=== PATIENT | female | born 1980 | race Caucasian/White ===

== ENCOUNTER 2016-06-22 15:17 | Emergency (ER) | payer BC ==
--- NOTE | 2016-06-22 15:39 | ER Document Report ---
ED Medical Screen (RME) - General Stated Complaint: VOMITING/DIARRHEA Notes: Patient is a 36-year-old female presents emergency Department with vomiting and diarrhea for the past 2 days. She does admit to hematemesis that started today. Admits to on and off hot flashes at home. Admits to abdominal pain over her umbilicus that radiates up to her chest. Appendectomy September 2012. I have greeted and performed a rapid initial assessment of this patient. A comprehensive ED assessment and evaluation of the patient, analysis of test results and completion of the medical decision making process will be conducted by additional ED providers. TRAVEL OUTSIDE OF THE [place] IN LAST 30 DAYS: No - Related Data Allergies/Adverse Reactions: codeine [Codeine] Allergy (Verified 04/20/16 13:02) Past Medical History Pulmonary Medical History: Denies: Hx Asthma, Hx Bronchitis, Hx Pneumonia Renal/ Medical History: Reports: Hx Ectopic - treated with methotrexate Psychiatric Medical History: Reports: Hx Anxiety, Hx Bipolar Disorder, Hx Depression Past Surgical History: Reports: Hx Appendectomy - Immunizations Hx Diphtheria, Pertussis, Tetanus Vaccination: Yes Physical Exam - Vital signs Vitals: Temp Pulse Resp BP Pulse Ox 98.4 F 79 16 120/82 96 06/22/16 15:29 06/22/16 15:29 06/22/16 15:29 06/22/16 15:29 06/22/16 15:29 Course - Vital Signs Vital signs: Temp Pulse Resp BP Pulse Ox 98.4 F 79 16 120/82 96 06/22/16 15:29 06/22/16 15:29 06/22/16 15:29 06/22/16 15:29 06/22/16 15:29
[2016-06-22] MEDS ORDERED: ONDANSETRON 4 MG TAB.RAPDIS PO ONE (15:40)
[2016-06-22 16:19] LABS: ABSOLUTE EOSINOPHILS # (AUTO) 0.6 10^3/uL (0.0-0.6); ABSOLUTE LYMPHOCYTES (AUTO) 2.3 10^3/uL (0.5-4.7); ABSOLUTE MONOCYTES (AUTO) 0.8 10^3/uL (0.1-1.4); ABSOLUTE NEUT (AUTO) 10.4 10^3/uL (1.7-8.2); BASOPHILS % (AUTO) 0.1 % (0-2); EOSINOPHILS % (AUTO) 4.3 % (0-6); HEMATOCRIT 41.2 % (36.0-47.0); HEMOGLOBIN 13.7 g/dL (12.0-15.5); HGB HCT DIFFERENCE -0.1; LYMPHOCYTES % (AUTO) 16.6 % (13-45); MEAN CORPUSCULAR HEMOGLOBIN 29.9 pg (27.0-33.4); MEAN CORPUSCULAR HGB CONC 33.2 g/dL (32.0-36.0); MEAN CORPUSCULAR VOLUME 90 fl (80-97); MONOCYTES % (AUTO) 5.5 % (3-13); RED BLOOD COUNT 4.57 10^6/uL (3.72-5.28); RED CELL DISTRIBUTION WIDTH 12.9 % (11.5-14.0); SEGMENTED NEUTROPHILS % (AUTO) 73.5 % (42-78); WHITE BLOOD COUNT 14.1 10^3/uL (4.0-10.5)
[2016-06-22 16:34] LABS: APPEARANCE,URINE CLOUDY; BILIRUBIN,URINE NEGATIVE (NEGATIVE); GLUCOSE, URINE NEGATIVE (NEGATIVE); KETONES,URINE NEGATIVE (NEGATIVE); LEUKOCYTE ESTERASE,URINE MODERATE (NEGATIVE); NITRITE,URINE NEGATIVE (NEGATIVE); PROTEIN,URINE 100 mg/dL (NEGATIVE); UROBILINOGEN,URINE NEGATIVE mg/dL (<2.0)
[2016-06-22 16:38] LABS: ALANINE AMINOTRANSFERASE 28 U/L (9-52); ALBUMIN 4.4 g/dL (3.5-5.0); ALKALINE PHOSPHATASE 87 U/L (38-126); ANION GAP 14 (5-19); ASPARTATE AMINO TRANSFERASE 15 U/L (14-36); BILIRUBIN,TOTAL 0.7 mg/dL (0.2-1.3); BLOOD UREA NITROGEN 10 mg/dL (7-20); CALCIUM 9.4 mg/dL (8.4-10.2); CARBON DIOXIDE 22 mmol/L (22-30); CHLORIDE 105 mmol/L (98-107); GLUCOSE 110 mg/dL (75-110); LIPASE 42.2 U/L (23-300); POTASSIUM 4.2 mmol/L (3.6-5.0); SODIUM 141.3 mmol/L (137-145); TOTAL PROTEIN 7.1 g/dL (6.3-8.2)
[2016-06-22] MEDS ORDERED: NORMAL SALINE 1000 ML 1,000 ML IV ONE (18:47)
[2016-06-22] MEDS ORDERED: MORPHINE SULFATE 10 MG/ML INJ IV ONE ×2 (18:47→20:58)
--- NOTE | 2016-06-22 18:48 | ER Document Report ---
ED GI/ - General Mode of Arrival: Ambulatory Information source: Patient TRAVEL OUTSIDE OF THE [place] IN LAST 30 DAYS: No - HPI Patient complains to provider of: Abdominal pain, Diarrhea, Vomiting Onset: Other - 2 days ago Location: Other - see above Associated symptoms: Other - see above <HIEN DE SANTIAGO - Last Filed: 06/22/16 20:32> <BERTHAJENNIFER ANN - Last Filed: 06/23/16 03:20> - General Chief Complaint: Abdominal Pain Stated Complaint: VOMITING/DIARRHEA Notes: 36 year old female with history of ADHD, depression, and anxiety presents to the ED complaining of right sided abdominal pain that started 2 days ago. Patient is additionally complaining of vomiting and diarrhea. Patient states that yesterday morning she woke up with a "sour stomach" and took a pepto bismol tablet when she arrived to work. Patient explains that she then proceeded to vomit and her symptoms have been worsening since then. Patient has a past abdominal surgical history of an appendectomy in September 2012. (HIEN DE SANTIAGO) - Related Data Allergies/Adverse Reactions: codeine [Codeine] Allergy (Verified 06/22/16 15:38) Past Medical History - General Information source: Patient - Social History Smoking Status: Current Every Day Smoker Chew tobacco use (# tins/day): No Drug Abuse: None Family History: Reviewed & Not Pertinent Patient has suicidal ideation: No Patient has homicidal ideation: No Renal/ Medical History: Reports: Hx Ectopic - treated with methotrexate Psychiatric Medical History: Reports: Hx Anxiety, Hx Bipolar Disorder, Hx Depression Past Surgical History: Reports: Hx Appendectomy - September 2012 - Immunizations Hx Diphtheria, Pertussis, Tetanus Vaccination: Yes <HIEN DE SANTIAGO - Last Filed: 06/22/16 20:32> Review of Systems - Review of Systems Constitutional: No symptoms reported EENT: No symptoms reported Cardiovascular: No symptoms reported Respiratory: No symptoms reported Gastrointestinal: See HPI, Abdominal pain - right side, Diarrhea, Vomiting Genitourinary: No symptoms reported Female Genitourinary: No symptoms reported Musculoskeletal: No symptoms reported Skin: No symptoms reported Hematologic/Lymphatic: No symptoms reported Neurological/Psychological: No symptoms reported -: Yes All other systems reviewed and negative <HIEN DE SANTIAGO - Last Filed: 06/22/16 20:32> Physical Exam - Vital signs Interpretation: Normal - General General appearance: Alert In distress: None - HEENT Head: Normocephalic, Atraumatic Eyes: Normal Extraocular movements intact: Yes Pupils: PERRL Mucous membranes: Dry - Respiratory Respiratory status: No respiratory distress Breath sounds: Normal - Cardiovascular Rhythm: Regular Heart sounds: Normal auscultation - Abdominal Inspection: Normal Tenderness: Tender - RUQ tenderness to palpation - Back Back: Normal - Extremities General upper extremity: Normal inspection, Normal ROM General lower extremity: Normal inspection, Normal ROM - Neurological Neuro grossly intact: Yes Cognition: Normal Orientation: AAOx4 [place] Coma Scale Eye Opening: Spontaneous Marlene Coma Scale Verbal: Oriented [place] Coma Scale Motor: Obeys Commands Marlene Coma Scale Total: 15 Speech: Normal - Psychological Associated symptoms: Normal affect, Normal mood - Skin Skin Temperature: Warm Skin Moisture: Dry Skin Color: Normal <HIEN DE SANTIAGO - Last Filed: 06/22/16 20:32> <JENNIFER STONE - Last Filed: 06/23/16 03:20> - Vital signs Vitals: Temp Pulse Resp BP Pulse Ox 98.4 F 79 16 120/82 96 06/22/16 15:29 06/22/16 15:29 06/22/16 15:29 06/22/16 15:29 06/22/16 15:29 (HIEN DE SANTIAGO) (JENNIFER STONE) Course - Laboratory Result Diagrams: 06/22/16 15:45 06/22/16 15:45 <HIEN DE SANTIAGO - Last Filed: 06/22/16 20:32> - Laboratory Result Diagrams: 06/22/16 15:45 06/22/16 15:45 - Diagnostic Test Radiology reviewed: Reports reviewed <JENNIFER STONE - Last Filed: 06/23/16 03:20> - Re-evaluation Re-evalutation: 06/22/16 21:04 Patient with continued right-sided pain. Now 18 is lower in her abdomen. Patient will be given pain medication and CT ordered. 06/23/16 Patient feels better after pain medication and fluids. No acute findings and CT. Blood work within normal limits. Patient is able to take by mouth. Stable for discharge home. Return if any worsening or concerning symptoms. ( JENNIFER STONE) - Vital Signs Vital signs: Temp Pulse Resp BP Pulse Ox 98.4 F 79 16 120/82 96 06/22/16 15:29 06/22/16 15:29 06/22/16 15:29 06/22/16 15:29 06/22/16 15:29 (HIEN DE SANTIAGO) (JENNIFER STONE) - Laboratory Laboratory results interpreted by me: 06/22/16 06/22/16 15:45 15:50 WBC 14.1 H Absolute Neutrophils 10.4 H Urine Protein 100 H Ur Leukocyte Esterase MODERATE H (HIEN DE SANTIAGO) (JENNIFER STONE) Discharge <HIEN DE SANTIAGO - Last Filed: 06/22/16 20:32> <JENNIFER STONE - Last Filed: 06/23/16 03:20> - Discharge Clinical Impression: Abdominal pain Qualifiers: Abdominal location: right upper quadrant Qualified Code(s): R10.11 - Right upper quadrant pain Vomiting Qualifiers: Vomiting type: unspecified Vomiting Intractability: non-intractable Nausea presence: with nausea Qualified Code(s): R11.2 - Nausea with vomiting, unspecified Diarrhea Qualifiers: Diarrhea type: unspecified type Qualified Code(s): R19.7 - Diarrhea, unspecified Condition: Stable Disposition: HOME, SELF-CARE Instructions: Abdominal Pain ([facility]), Vomiting ([facility]), Diarrhea, Nonspecific ([facility]) Prescriptions: Ondansetron [Zofran Odt 4 mg Tablet] 1 - 2 tab PO Q4H PRN #15 tab.rapdis PRN Reason: For Nausea/Vomiting Oxycodone HCl/Acetaminophen [Percocet 5-325 mg Tablet] 1 - 2 tab PO Q4H PRN #15 tablet PRN Reason: Forms: Return to Work Referrals: SUYAPA ALEXANDER MD [Primary Care Provider] - Follow up as needed Scribe Attestation: 06/23/16 03:19 I personally performed the services described in the documentation, reviewed and edited the documentation which was dictated to the scribe in my presence, and it accurately records my words and actions. (JENNIFER STONE) Scribe Documentation - Scribe Written by Scribe:: Fabrice Farias, 06/22/2016 19:14 acting as scribe for :: Bertha <HIEN DE SANTIAGO - Last Filed: 06/22/16 20:32>
[2016-06-22] MEDS ORDERED: HYDROCODONE/ACETAMINOPHEN 5-325 MG 6 TAB/DSPK PO PRN (22:04)
[2016-06-22] MEDS ORDERED: ONDANSETRON ODT 4 MG TAB (6 TAB/DSPK) PO PRN (22:04)
[2016-06-22 22:32] VITALS: BP 119/72
== END 2016-06-22 22:24 | disposition home or self-care (01) ==
LOC: ER 15:17
DX: R10.11 Right upper quadrant pain (principal); R11.2 Nausea with vomiting, unspecified; R19.7 Diarrhea, unspecified; F17.200 Nicotine dependence, unspecified, uncomplicated; Z90.49 Acquired absence of other specified parts of digestive tract; Z88.5 Allergy status to narcotic agent; Z87.59 Personal history of other complications of pregnancy, childbirth and the puerperium
CPT/HCPCS: 96376; 99284; 96361; 96374; 36415; 87086; 83690; 85025; 81025; 80053; 81001; 76705; 74177; S0119; J2270; J7030

== ENCOUNTER 2016-08-01 13:56 | Emergency (ER) | payer SELFPAY ==
[2016-08-01] MEDS ORDERED: IPRATROPIUM/ALBUTEROL 0.5-2.5 MG/3 ML AMPUL NEB ONE (16:33)
[2016-08-01] MEDS ORDERED: PREDNISONE 20 MG TABLET PO ONE (16:33)
--- NOTE | 2016-08-01 16:36 | ER Document Report ---
HPI - HPI Patient complains to provider of: upper respiratory symptoms Onset: Other - 4 days Onset/Duration: Gradual Quality of pain: Achy Pain Level: 4 Context: Patient complains of sore throat, cough and congestion for the past 4 days. Patient reports productive cough. Patient states she has had some nausea. Patient denies any vomiting or diarrhea. Patient reports fever of 102 yesterday. Reports multiple sick contacts at work with similar symptoms. Associated Symptoms: Body/muscle aches, Chills, Productive cough, Fever, Sore throat. denies: Headache Exacerbated by: Denies Relieved by: Denies Similar symptoms previously: Yes Recently seen / treated by doctor: No - ROS ROS below otherwise negative: Yes Systems Reviewed and Negative: Yes All other systems reviewed and negative - CONSTITUTIONAL Constitutional: REPORTS: Fever, Chills - EENT EENT: REPORTS: Sore Throat, Congestion - RESPIRATORY Respiratory: REPORTS: Coughing. DENIES: Trouble Breathing - GASTROINTESTINAL Gastrointestinal: REPORTS: Nausea. DENIES: Patient vomiting, Diarrhea, Black / Bloody Stools - REPRODUCTIVE Reproductive: DENIES: : - MUSCULOSKELETAL Musculoskeletal: DENIES: Extremity pain - DERM Skin Color: Normal Skin Problems: None Past Medical History - General Information source: Patient Last Menstrual Period: 07/14/2016 - Social History Smoking Status: Current Every Day Smoker - One pack per day Frequency of alcohol use: None Drug Abuse: None Occupation: [employer] Lives with: Family Family History: Reviewed & Not Pertinent Pulmonary Medical History: Denies: Hx Asthma, Hx Bronchitis, Hx Pneumonia Renal/ Medical History: Reports: Hx Ectopic - treated with methotrexate. Denies: Hx Peritoneal Dialysis Musculoskeltal Medical History: Reports Hx Arthritis - Sciatica Psychiatric Medical History: Reports: Hx Anxiety, Hx Bipolar Disorder, Hx Depression Past Surgical History: Reports: Hx Appendectomy - September 2012 - Immunizations Hx Diphtheria, Pertussis, Tetanus Vaccination: Yes Vertical Provider Document - CONSTITUTIONAL Agree With Documented VS: Yes Exam Limitations: No Limitations General Appearance: WD/WN, No Apparent Distress - INFECTION CONTROL TRAVEL OUTSIDE OF THE [place] IN LAST 30 DAYS: No - HEENT HEENT: Atraumatic, Normocephalic, Pharyngeal Tenderness. negative: Pharyngeal Exudate, Tympanic Membrane Red, Tympanic Membrane Bulging - NECK Neck: Normal Inspection, Supple. negative: Lymphadenopathy-Left, Lymphadenopathy-Right - RESPIRATORY Respiratory: No Respiratory Distress, Rhonchi, Wheezing O2 Sat by Pulse Oximetry: 98 - CARDIOVASCULAR Cardiovascular: Regular Rhythm, No Murmur, Tachycardia - BACK Back: Normal Inspection - MUSCULOSKELETAL/EXTREMETIES Musculoskeletal/Extremeties: FRANCOIS MCMANUS - NEURO Level of Consciousness: Awake, Alert, Appropriate Motor/Sensory: No Motor Deficit - DERM Integumentary: Warm, Dry, No Rash Course - Re-evaluation Re-evalutation: 08/01/16 17:52 Patient with decreased wheezing and increased air movement bilaterally. 08/01/16 19:20 Heart rate continues mildly tachycardic 114. Patient states that she feels much better after the breathing treatment. Patient does take Adderall and states that she has had an elevated heart rate in the past but on subsequent visits her heart rate has normalized. Patient denies any history of DVT or PE, recent travel, bedrest or immobilization. Patient does not take any control. Consulted with Dr. Mcclellan regarding patient presentation. Agrees with discharge plan of care, does not recommend any additional testing at this time. - Vital Signs Vital signs: Temp Pulse Resp BP Pulse Ox 98.1 F 111 H 18 141/82 H 98 08/01/16 14:27 08/01/16 14:27 08/01/16 14:27 08/01/16 14:27 08/01/16 14:27 - Diagnostic Test Radiology reviewed: Image reviewed, Reports reviewed Discharge - Discharge Clinical Impression: Bronchospasm Upper respiratory infection Qualifiers: URI type: unspecified URI Qualified Code(s): J06.9 - Acute upper respiratory infection, unspecified Condition: Stable Disposition: HOME, SELF-CARE Additional Instructions: Return immediately for any new or worsening symptoms Followup with your primary care provider, call tomorrow to make a followup appointment UPPER RESPIRATORY ILLNESS: You have a viral infection of the respiratory passages -- a "cold." This common infection causes nasal congestion, drainage, and often sore throat and cough. It is highly contagious. The disease usually lasts about 10 to 14 days. There is no "cure" for the viral infection -- it must run its course. If there is a complication, such as bacterial infection in the nose, sinuses, middle ear, or bronchial tubes, antibiotics may be required. The antibiotics won't affect the virus. Drink plenty of fluids. A humidifier may help. An expectorant medication or decongestant may make you more comfortable. Use acetaminophen or ibuprofen for fever or aches. See the doctor if fever persists over two days, if there is any significant worsening of your symptoms, or if you simply fail to improve as expected. BRONCHOSPASM: You have tightness in the bronchial tubes, called bronchospasm. This often occurs with bronchial infections. Allergies, inhaled chemicals, and polluted or cold air can also provoke bronchospasm. It's more likely in patients with asthma in the family. Emergency treatment of bronchospasm may include adrenaline shots or bronchodilator aerosol. You may feel lightheaded and have a rapid pulse for an hour or two. Rest and get plenty of fluids. At home, we'll treat you with a bronchodilator inhaler. Antibiotics and corticosteroids may be required for some patients. Until you recover, avoid chemical fumes, dusts, pollens, and exercising in very cold or dry air. If you smoke, stop now!! If you develop a fever, increased wheezing, chest pain, or severe shortness of breath, you should contact the doctor immediately. INHALED BRONCHODILATORS: You have received a treatment of and/or prescription for an inhaled bronchodilator -- a medication which stimulates the airways in the lung to dilate. This improves the flow of air in asthma, bronchitis, and emphysema. These medicines have some similarity to adrenaline, and can cause similar side effects: shakiness, racing heart, and a sense of nervousness. These side effects decrease with time. Contact your doctor if these side effects are severe. Do not over-use the medicine. Too-frequent use of the inhaler may make it ineffective. Call your doctor if the inhaler is not controlling your symptoms at the prescribed doses. STEROID MEDICATION: You have been given an injection of or oral medicine of the cortisone/ steroid class. This medication is used to control inflammation or allergy. Justus t is usually only given for a short period of time, until the acute process subsides. There are usually no side effects from short-term use of cortisone-like medications. Some persons feel an increased sense of well-being and are not sleepy at bedtime. Long-term use of cortisone medications is best avoided, unless required for a severe condition. If your condition does not remit, or relapses after the course of corticosteroid medication, you should consult your physician. USE OF ACETAMINOPHEN (Tylenol): Acetaminophen may be taken for pain relief or fever control. It's much safer than aspirin, offering a wider range of "safe" dosages. It is safe during . Some brand names are Tylenol, Panadol, Datril, Anacin 3, Tempra, and Liquiprin. Acetaminophen can be repeated every four hours. The following are maximum recommended dosages: >89 pounds or adults 650 mg to 900 mg Acetaminophen can be repeated every four hours. Maximum dose not to exceed 4000 mg a day. SMOKING: If you smoke, you should stop smoking. The tar and chemicals in cigarette smoke are harmful. Smoking has been shown to cause: emphysema chronic bronchitis lung cancer mouth and throat cancer stomach and pancreas cancer premature aging defects In addition, smoking increases ear and lung infections in children of smokers. FOLLOW-UP CARE: If you have been referred to a physician for follow-up care, call the physician s office for an appointment as you were instructed or within the next two days. If you experience worsening or a significant change in your symptoms, notify the physician immediately or return to the Emergency Department at any time for re-evaluation. Prescriptions: Albuterol Sulfate [Ventolin Hfa] 2 puff IH Q4HP PRN #17 gm PRN Reason: Oxycodone HCl/Acetaminophen [Percocet 5-325 mg Tablet] 1 tab PO ASDIR PRN #12 tablet PRN Reason: Prednisone [Deltasone 20 mg Tablet] 3 tab PO DAILY 4 Days Forms: Smoking Cessation Education, Return to Work Referrals: SUYAPA ALEXANDER MD [Primary Care Provider] - Follow up tomorrow
[2016-08-01] MEDS ORDERED: ALBUTEROL SULFATE 0.083% NEB 2.5 MG/3 ML AMPUL NEB SCH (16:49)
[2016-08-01] MEDS ORDERED: OXYCODONE-ACETAMINOPHEN 5-325 MG TABLET PO ONE (17:52)
[2016-08-01] MEDS ORDERED: ALBUTEROL SULFATE HFA (90 MCG/PUFF) 8 GM MDI (1 MDI/ER DISP) IH ONE (19:08)
[2016-08-01 19:25] VITALS: BP 122/78
== END 2016-08-01 19:15 | disposition home or self-care (01) ==
LOC: ER 13:56
DX: J06.9 Acute upper respiratory infection, unspecified (principal); J98.01 Acute bronchospasm; J02.9 Acute pharyngitis, unspecified; R05 Cough; R11.0 Nausea; R50.9 Fever, unspecified; R00.0 Tachycardia, unspecified; M79.1 Myalgia; F17.200 Nicotine dependence, unspecified, uncomplicated; Z79.899 Other long term (current) drug therapy
CPT/HCPCS: 94640 ×2; 99283; 71020; J7512; J3490; J7620

== ENCOUNTER 2016-09-08 17:27 | Emergency (ER) | payer SELFPAY ==
[2016-09-08 19:24] LABS: ABSOLUTE BASOPHILS # (AUTO) 0.1 10^3/uL (0.0-0.2); ABSOLUTE EOSINOPHILS # (AUTO) 0.3 10^3/uL (0.0-0.6); ABSOLUTE LYMPHOCYTES (AUTO) 2.3 10^3/uL (0.5-4.7); ABSOLUTE MONOCYTES (AUTO) 0.4 10^3/uL (0.1-1.4); ABSOLUTE NEUT (AUTO) 8.3 10^3/uL (1.7-8.2); BASOPHILS % (AUTO) 0.5 % (0-2); HEMATOCRIT 39.5 % (36.0-47.0); HEMOGLOBIN 13.7 g/dL (12.0-15.5); HGB HCT DIFFERENCE 1.6; LYMPHOCYTES % (AUTO) 19.9 % (13-45); MEAN CORPUSCULAR HEMOGLOBIN 30.9 pg (27.0-33.4); MEAN CORPUSCULAR HGB CONC 34.8 g/dL (32.0-36.0); MEAN CORPUSCULAR VOLUME 89 fl (80-97); MONOCYTES % (AUTO) 3.5 % (3-13); RED BLOOD COUNT 4.44 10^6/uL (3.72-5.28); RED CELL DISTRIBUTION WIDTH 13.7 % (11.5-14.0); SEGMENTED NEUTROPHILS % (AUTO) 73.1 % (42-78); WHITE BLOOD COUNT 11.3 10^3/uL (4.0-10.5)
[2016-09-08 19:43] LABS: ALANINE AMINOTRANSFERASE 30 U/L (9-52); ALBUMIN 4.3 g/dL (3.5-5.0); ALKALINE PHOSPHATASE 86 U/L (38-126); ANION GAP 15 (5-19); ASPARTATE AMINO TRANSFERASE 19 U/L (14-36); BILIRUBIN,DIRECT 0.3 mg/dL (0.0-0.4); BILIRUBIN,TOTAL 0.6 mg/dL (0.2-1.3); BLOOD UREA NITROGEN 14 mg/dL (7-20); CALCIUM 9.6 mg/dL (8.4-10.2); CARBON DIOXIDE 24 mmol/L (22-30); CHLORIDE 105 mmol/L (98-107); CREATININE RESULT 0.62 mg/dL (0.52-1.25); GLUCOSE 201 mg/dL (75-110); SODIUM 143.5 mmol/L (137-145); TOTAL PROTEIN 7.1 g/dL (6.3-8.2)
[2016-09-08 19:46] LABS: ALCOHOL < 10 mg/dL (NONE DETECTED)
--- NOTE | 2016-09-08 19:50 | EKG REPORT ---
SEVERITY:- ABNORMAL ECG - SINUS RHYTHM INCOMPLETE RIGHT BUNDLE BRANCH BLOCK : Confirmed by: Silas Rodríguez MD 08-Sep-2016 19:49:46
[2016-09-08 20:08] LABS: APPEARANCE,URINE SLIGHTLY-CLOUDY; BILIRUBIN,URINE NEGATIVE (NEGATIVE); GLUCOSE, URINE 50 mg/dL (NEGATIVE); KETONES,URINE NEGATIVE (NEGATIVE); LEUKOCYTE ESTERASE,URINE NEGATIVE (NEGATIVE); NITRITE,URINE NEGATIVE (NEGATIVE); PROTEIN,URINE NEGATIVE (NEGATIVE); URINE SPECIFIC GRAVITY 1.026; UROBILINOGEN,URINE NEGATIVE mg/dL (<2.0)
[2016-09-08 20:25] LABS: URINE BARBITURATES SCREEN NEGATIVE; URINE METHADONE SCREEN NEGATIVE; URINE OPIATES LOW NEGATIVE; URINE PHENCYCLIDINE SCREEN NEGATIVE
[2016-09-08] MEDS ORDERED: LIDOCAINE 5% (700 MG) TRANSDERMAL ADH..PATCH TP ONE (21:11)
[2016-09-08] MEDS ORDERED: IBUPROFEN 600 MG TABLET PO ONE (21:11)
[2016-09-08] MEDS ORDERED: VENLAFAXINE HCL 75 MG CAP.SR.24H PO ONE (21:15)
[2016-09-08] MEDS ORDERED: ACETAMINOPHEN 325 MG TABLET PO PRN (21:16)
[2016-09-08] MEDS ORDERED: VENLAFAXINE HCL 75 MG CAP.SR.24H PO SCH (22:00)
--- NOTE | 2016-09-08 22:11 | ER Document Report ---
ED General - General Chief Complaint: Psych Problem Stated Complaint: IVC W/PAPERS TRAVEL OUTSIDE OF THE [place] IN LAST 30 DAYS: No - HPI Patient complains to provider of: homicidal suicidal ideation Notes: Patient coming in on IVC paper work for her suicidal ideation. Patient admits to homicidal suicidal ideation. Patient states that she would had a plan to kill her and kill herself as that she thought her could not live without her. Patient does states she's had multiple psychiatric admissions in the past. Patient does state she has been compliant with her medications. Upon my evaluation patient is sitting on the bed comfortably in no obvious distress - Related Data Allergies/Adverse Reactions: codeine [Codeine] Allergy (Verified 06/22/16 15:38) Home Medications: Current Home Medications Clonazepam [Klonopin 1 mg Tablet] 1 mg PO BID 09/08/16 [History] Cyclobenzaprine HCl [Cyclobenzaprine HCl] 1 tab PO BID PRN 09/08/16 [History] Dextroamphetamine/Amphetamine [Adderall XR 20 mg Capsule] 1 cap.sr PO DAILY [History] Venlafaxine HCl ER [Effexor Xr 75 mg Cap.sr] 225 mg PO DAILY 09/08/16 [History] Zaleplon [Sonata] 10 mg PO QHS 09/08/16 [History] Past Medical History - Social History Smoking Status: Current Every Day Smoker Frequency of alcohol use: None Drug Abuse: None Family History: Reviewed & Not Pertinent Patient has suicidal ideation: Yes Patient has homicidal ideation: Yes Pulmonary Medical History: Denies: Hx Asthma, Hx Bronchitis, Hx Pneumonia Renal/ Medical History: Reports: Hx Ectopic - treated with methotrexate. Denies: Hx Peritoneal Dialysis Musculoskeltal Medical History: Reports Hx Arthritis - Sciatica Psychiatric Medical History: Reports: Hx Anxiety, Hx Bipolar Disorder, Hx Depression Past Surgical History: Reports: Hx Appendectomy - September 2012 - Immunizations Hx Diphtheria, Pertussis, Tetanus Vaccination: Yes Review of Systems - Review of Systems Constitutional: No symptoms reported EENT: No symptoms reported Cardiovascular: No symptoms reported Respiratory: No symptoms reported Gastrointestinal: No symptoms reported Genitourinary: No symptoms reported Female Genitourinary: No symptoms reported Musculoskeletal: No symptoms reported Skin: No symptoms reported Hematologic/Lymphatic: No symptoms reported Neurological/Psychological: Other - Homicidal suicidal ideation -: Yes All other systems reviewed and negative Physical Exam - Vital signs Vitals: Temp Pulse Resp BP Pulse Ox 98.4 F 115 H 20 134/77 H 97 09/08/16 17:31 09/08/16 17:31 09/08/16 17:31 09/08/16 17:31 09/08/16 17:31 Interpretation: Normal - General General appearance: Appears well, Alert - HEENT Head: Normocephalic, Atraumatic Eyes: Normal Pupils: PERRL - Respiratory Respiratory status: No respiratory distress Chest status: Nontender Breath sounds: Normal Chest palpation: Normal - Cardiovascular Rhythm: Regular Heart sounds: Normal auscultation Murmur: No - Abdominal Inspection: Normal Distension: No distension Bowel sounds: Normal Tenderness: Nontender Organomegaly: No organomegaly - Back Back: Normal, Nontender - Extremities General upper extremity: Normal inspection, Nontender, Normal color, Normal ROM , Normal temperature General lower extremity: Normal inspection, Nontender, Normal color, Normal ROM , Normal temperature, Normal weight bearing. No: Richy's sign - Neurological Neuro grossly intact: Yes Cognition: Normal Orientation: AAOx4 [place] Coma Scale Eye Opening: Spontaneous Marlene Coma Scale Verbal: Oriented [place] Coma Scale Motor: Obeys Commands Marlene Coma Scale Total: 15 Speech: Normal Motor strength normal: LUE, RUE, LLE, RLE Sensory: Normal - Psychological Associated symptoms: Depressed, Flat affect - Skin Skin Temperature: Warm Skin Moisture: Dry Skin Color: Normal Course - Re-evaluation Re-evalutation: 09/08/16 22:09 Patient's lab work does show signs of dehydration. Patient was encouraged to continue to drink fluids. Patient will continue on IVC paper work patient medically cleared for further evaluation - Vital Signs Vital signs: Temp Pulse Resp BP Pulse Ox 98.4 F 115 H 20 134/77 H 97 09/08/16 17:31 09/08/16 17:31 09/08/16 17:31 09/08/16 17:31 09/08/16 17:31 09/08/16 22:09 - Laboratory Result Diagrams: 09/08/16 19:00 09/08/16 19:00 Laboratory results interpreted by me: 09/08/16 09/08/16 09/08/16 19:00 19:00 19:45 WBC 11.3 H Absolute Neutrophils 8.3 H Glucose 201 H Urine Glucose (UA) 50 H Salicylates < 1.0 L Acetaminophen < 10 L Discharge - Discharge Clinical Impression: Homicidal ideation, Suicidal ideation Condition: Good Disposition: PSYCH HOSP/UNIT
[2016-09-09] MEDS ORDERED: CLONAZEPAM 1 MG TABLET PO ONE (00:49)
[2016-09-09] MEDS ORDERED: CLONAZEPAM 1 MG TABLET ONE (00:54)
[2016-09-09] MEDS ORDERED: BENZTROPINE MESYLATE 1 MG TABLET PO SCH (17:45)
[2016-09-09] MEDS ORDERED: BENZTROPINE MESYLATE 1 MG TABLET PO ONE (18:15)
[2016-09-09] MEDS: OLANZAPINE 5 MG TABLET PO SCH (18:16)
[2016-09-09] MEDS: DIVALPROEX SODIUM 250 MG TAB.SR.24H PO SCH (18:16)
[2016-09-10] MEDS: DIVALPROEX SODIUM 250 MG TAB.SR.24H PO SCH ×2 (09:30→18:20)
[2016-09-10] MEDS: OLANZAPINE 5 MG TABLET PO SCH ×2 (09:30→18:20)
[2016-09-10] MEDS ORDERED: VENLAFAXINE HCL 75 MG TABLET PO SCH (10:00)
[2016-09-10] MEDS ORDERED: BENZTROPINE MESYLATE 1 MG TABLET PO SCH (10:00)
--- NOTE | 2016-09-10 10:32 | ER Document Report ---
Doctor's Note Notes: 09/10/16 10:28 Rounds: Chart reviewed and patient interview. Patient denies having homicidal or suicidal thoughts at this time. Says she's feeling better and is ready to go home. All vital signs within normal. Labs were normal with the exception of her drug screen being positive for amphetamines and marijuana. Patient appears medically stable for transfer or discharge. Vladislav Narayanan M.D.
--- NOTE | 2016-09-10 15:21 | PSYCHOLOGICAL NOTE ---
Psych Note - Psych Note Psych Note: Patient coming in on IVC paper work for suicidal ideation. Patient admits to homicidal suicidal ideation. Patient states that she would had a plan to kill her and kill herself as that she thought her could not live without her. Patient does states she's had multiple psychiatric admissions in the past. Patient does state she has been compliant with her medications. Upon my evaluation patient is sitting on the bed comfortably in no obvious distress Patient endorses suicidal ideation and continued to disclose the it has become so bad that she has started to think about her finding her body. She states that she "couldn't leave him;" he is so "dependent on her" that she started to think about killing him also. She states that she thought about using poison on both her and on herself. Clinician notes that patient became very distraught at this point with crying and rocking on the bed. The patient states that her and her are best friends and while they both have family in the area, they spend most of their time together. Patient states that when she thought of that, it scared her and she knew she needed help. She disclosed that she thinks her trigger was when her sister came to visit;her sister just had a baby. The patient states that in September of 2012 she found out that she was unable to have children. This has been a very difficult for her to cope with, she confirms she has not gone to therapy. Patient attends [facility] for medication management and states she has diagnosis of Major Depression, ADHA , and General Anxiety. Patient is alert and orientated to person, place, time and circumstance. Mood is dysphoric with tearful affect. Patient endorses suicidal and homicidal ideation. Patient denies auditory and visual hallucinations; patient is not demonstrating behaviour what would be congruent to responding to internal stimuli. No delusions are noted. Thought process is organized and linear. Eye contact was well maintained. Intellectual abilities appear to be within average range. Attention and concentration is good. Insight, judgment, and impulse control is fair. 296.89 (F31.81) Bipolar II Disorder As evidenced by existing disclosed mental health diagnosis, in additional symptoms provided by patient i.e. periods of extreme depression by times of extreme irritability, difficult sleeping, difficulty concentrating and staying on task. There are no noted periods of manic behaviour only hypomanic and depressive. Impression/plan: Patient is recommend to continue under IVC; patient is currently demonstrating dysphoric mood with tearful affect while endorsing suicidal and homicidal ideation. Patient is currently danger to self and others. Patient disclosed medication previously prescribed as Effexor, Adderall , Klonopin, and a sleep aid. Behavior health team recommends medication changes to discontinuing previous medications and replacing them with Depakote, Zyprexa and Cogentin. Patient will be reevaluated. Dr. Madrid was consulted on the Management of this patient; attending physician is in agreement with recommendations and disposition.
--- NOTE | 2016-09-10 15:40 | PSYCHOLOGICAL NOTE ---
Psych Note - Psych Note Psych Note: Patient coming in on IVC paper work for suicidal ideation. Patient admits to homicidal suicidal ideation. Patient states that she would had a plan to kill her and kill herself as that she thought her could not live without her. Patient does states she's had multiple psychiatric admissions in the past. Patient does state she has been compliant with her medications. Upon my evaluation patient is sitting on the bed comfortably in no obvious distress Patient disclosed she is feeling much better. Clinician notes patient is sitting up in opening engaging with clinician. Patient is noted to be smiling. Patient disclosed last night approximately 20 minutes after getting medication she started to feel "less anxiety." Patient states she is no longer thinking of suicide and absolutely wouldn't think of killing her . Patient reiterated that she knew she needed help when that thought came into her head. Patient provided clinician name and number to patient's disclosing that she has always told him everything however she had not gotten to tell him about the homicidal ideation. Patient provided consent to clinician to discuss this with patient's . Clinician spoke with patient's , Danyel [phone], he disclosed that he knew his needed to come in because she was pulling away. He continued disclosed unwavering support to patient. Clinician discussed with Danyel homicidal ideation and patient's plan. I am disclosed shock however states thinking on the past days he he thinks he can pinpoint when spell started entering her mind. Clinician discussed triggers, Danyel disclosed patient's sister just had a baby and they have decided not to have children. Clinician discussed with Danyel that patient disclosed her inability to have children; he confirm this, stating that has been very hard. He continued disclosed that he will ensure the patient has no access to any medications that are prescribed or [id number]-kyzlale, weapons, or any substances that can be easily used as poison i.e. Borax, mouse or rat poisoning, fertilizer. Patient is alert and orientated to person, place, time and circumstance. Mood is euthymic with congruent affect. Patient denies current suicidal and homicidal ideation. Patient denies auditory and visual hallucinations; patient is not demonstrating behaviour what would be congruent to responding to internal stimuli. No delusions are noted. Thought process is organized and linear. Eye contact was well maintained. Intellectual abilities appear to be within average range. Attention and concentration is good. Insight, judgment, and impulse control is fair. 296.89 (F31.81) Bipolar II Disorder As evidenced by existing disclosed mental health diagnosis, in additional symptoms provided by patient i.e. periods of extreme depression by times of extreme irritability, difficult sleeping, difficulty concentrating and staying on task. There are no noted periods of manic behaviour only hypomanic and depressive. Impression/plan: Patient is recommended for rescind of IVC and are considered psychiatrically clear for discharge. They do not meet IVC criteria per [place] GS 122C. Patient denies current suicidal and homicidal ideation. Patient reports positive results from medication changes recommended by behavioral health team. Clinician notes presentation of patient to be significantly improved and can be followed up with out patient services. Patient is recommend to follow up with home mental health provider [facility], and is asked to call within 3 days to make an appointment. Patient's agrees to ensure the patient does not have access to medications, weapons or common household poisons. That patient' s is urged to return with the patient if suicidal or homicidal ideation returns. Dr. Madrid was consulted on the care and management of this patient; attending physician is in agreement with recommendations and disposition.
[2016-09-10 21:29] VITALS: BP 130/74
== END 2016-09-10 21:17 | disposition home or self-care (01) ==
LOC: ER 17:27
DX: R45.850 Homicidal ideations (principal); R45.851 Suicidal ideations; Z79.899 Other long term (current) drug therapy; F17.200 Nicotine dependence, unspecified, uncomplicated
CPT/HCPCS: 93005; 99285; 36415; 80307 ×4; 85025; 80053; 81001; 93010; J3490 ×2

== ENCOUNTER 2016-11-06 23:01 | Emergency (ER) | payer SELFPAY ==
[2016-11-07 00:22] LABS: ABSOLUTE BASOPHILS # (AUTO) 0.1 10^3/uL (0.0-0.2); ABSOLUTE EOSINOPHILS # (AUTO) 0.6 10^3/uL (0.0-0.6); ABSOLUTE LYMPHOCYTES (AUTO) 3.4 10^3/uL (0.5-4.7); ABSOLUTE MONOCYTES (AUTO) 0.6 10^3/uL (0.1-1.4); ABSOLUTE NEUT (AUTO) 9.1 10^3/uL (1.7-8.2); EOSINOPHILS % (AUTO) 4.5 % (0-6); LYMPHOCYTES % (AUTO) 24.4 % (13-45); MEAN CORPUSCULAR HEMOGLOBIN 30.6 pg (27.0-33.4); MEAN CORPUSCULAR HGB CONC 34.2 g/dL (32.0-36.0); MEAN CORPUSCULAR VOLUME 90 fl (80-97); MONOCYTES % (AUTO) 4.3 % (3-13); RED BLOOD COUNT 4.92 10^6/uL (3.72-5.28); RED CELL DISTRIBUTION WIDTH 13.3 % (11.5-14.0); SEGMENTED NEUTROPHILS % (AUTO) 65.8 % (42-78); WHITE BLOOD COUNT 13.8 10^3/uL (4.0-10.5)
[2016-11-07 00:34] LABS: APPEARANCE,URINE CLEAR; BILIRUBIN,URINE NEGATIVE (NEGATIVE); GLUCOSE, URINE >=500 mg/dL (NEGATIVE); KETONES,URINE NEGATIVE (NEGATIVE); LEUKOCYTE ESTERASE,URINE NEGATIVE (NEGATIVE); NITRITE,URINE NEGATIVE (NEGATIVE); PROTEIN,URINE NEGATIVE (NEGATIVE); URINE SPECIFIC GRAVITY 1.037; UROBILINOGEN,URINE NEGATIVE mg/dL (<2.0)
[2016-11-07] MEDS ORDERED: ONDANSETRON HCL INJ/PF 4 MG/2 ML SDV IV ONE (00:37)
[2016-11-07] MEDS ORDERED: NORMAL SALINE 1000 ML 1,000 ML IV ONE ×2 (00:38)
--- NOTE | 2016-11-07 00:41 | ER Document Report ---
ED General - General Chief Complaint: Abdominal Pain Stated Complaint: LEFT HAND NUMBNESS,ABDOMINAL PAIN Time Seen by Provider: 11/07/16 00:29 Notes: Patient is a 36 year old female that comes to the ED for chief complaint of abdominal pain, urinary urgency, and numbness in the 1st, 2nd, and 3rd digit of the right hand. She also states that after she ate a grilled cheese sandwich she vomited today and there were a few flecks of blood in it. She states she had a bowel movement earlier, denies black or bloody stools. She denies fever. She is currently on her menstrual cycle. She has had an appendectomy, hx depression and medicated for this. TRAVEL OUTSIDE OF THE [place] IN LAST 30 DAYS: No - Related Data Allergies/Adverse Reactions: codeine [Codeine] Allergy (Verified 11/07/16 02:08) Past Medical History - General Information source: Patient - Social History Smoking Status: Never Smoker Frequency of alcohol use: None Drug Abuse: None Lives with: Family Family History: Reviewed & Not Pertinent Patient has suicidal ideation: No Patient has homicidal ideation: No Pulmonary Medical History: Denies: Hx Asthma, Hx Bronchitis, Hx Pneumonia Renal/ Medical History: Reports: Hx Ectopic - treated with methotrexate. Denies: Hx Peritoneal Dialysis Musculoskeltal Medical History: Reports Hx Arthritis - Sciatica Psychiatric Medical History: Reports: Hx Anxiety, Hx Bipolar Disorder, Hx Depression Past Surgical History: Reports: Hx Appendectomy - September 2012 - Immunizations Hx Diphtheria, Pertussis, Tetanus Vaccination: Yes Review of Systems - Review of Systems Constitutional: See HPI EENT: No symptoms reported Cardiovascular: No symptoms reported Respiratory: No symptoms reported Gastrointestinal: See HPI Genitourinary: See HPI Female Genitourinary: No symptoms reported Musculoskeletal: No symptoms reported Skin: No symptoms reported Hematologic/Lymphatic: No symptoms reported Neurological/Psychological: No symptoms reported Physical Exam - Vital signs Vitals: Temp Pulse Resp BP Pulse Ox 98.1 F 111 H 16 141/90 H 97 11/06/16 23:23 11/06/16 23:23 11/06/16 23:23 11/06/16 23:23 11/06/16 23:23 Interpretation: Normal - General General appearance: Appears well, Alert In distress: None - HEENT Head: Normocephalic, Atraumatic Eyes: Normal Pupils: PERRL Sinus: Normal Nasal: Normal Mouth/Lips: Normal Mucous membranes: Dry - Very dry tongue and lips Pharynx: Normal Neck: Normal - Respiratory Respiratory status: No respiratory distress Chest status: Nontender Breath sounds: Normal Chest palpation: Normal - Cardiovascular Rhythm: Regular Heart sounds: Normal auscultation Murmur: No - Abdominal Inspection: Normal Distension: No distension Bowel sounds: Normal Tenderness: Tender - Tender in the general upper abdomen including the right upper quadrant, no guarding, no lower abdominal tenderness Organomegaly: No organomegaly - Back Back: Normal, Nontender - Extremities General upper extremity: Normal inspection, Nontender, Normal color, Normal ROM , Normal temperature General lower extremity: Normal inspection, Nontender, Normal color, Normal ROM , Normal temperature, Normal weight bearing. No: Richy's sign - Neurological Neuro grossly intact: Yes Cognition: Normal Orientation: AAOx4 [place] Coma Scale Eye Opening: Spontaneous Marlene Coma Scale Verbal: Oriented [place] Coma Scale Motor: Obeys Commands [place] Coma Scale Total: 15 Speech: Normal Motor strength normal: LUE, RUE, LLE, RLE Sensory: Normal - Psychological Associated symptoms: Normal affect, Normal mood - Skin Skin Temperature: Warm Skin Moisture: Dry Skin Color: Normal Course - Re-evaluation Re-evalutation: Patient with parched mucous membranes on examination, very elevated specific gravity, hyperglycemia with no anion gap abnormality, bicarbonate is 21. Patient hydrated, given insulin, glucose down trended, symptoms improved significantly. Patient has some upper abdominal and right upper quadrant pain on exam, ultrasound however shows no pathology except for fatty infiltration of the liver. Chemistry does not suggest obstructive abnormality. Discussed with patient in detail, patient states that she "did this to herself", however she states she is motivated to treat this and get better, she states that she will see Dr. Cornell this week for a close follow-up, discussed return precautions, patient states understanding and agreement. - Vital Signs Vital signs: Temp Pulse Resp BP Pulse Ox 97.5 F 90 16 111/78 95 11/07/16 03:31 11/07/16 03:31 11/07/16 03:31 11/07/16 03:31 11/07/16 03:31 - Laboratory Result Diagrams: 11/07/16 00:03 11/07/16 00:03 Laboratory results interpreted by me: 11/06/16 11/07/1617 23:27 00:03 00:03 WBC 13.8 H Absolute Neutrophils 9.1 H Sodium 133.8 L Chloride 97 L Carbon Dioxide 21 L Creatinine 0.46 L Glucose 461 H* POC Glucose 488 H* AST 63 H ALT 81 H Alkaline Phosphatase 175 H Urine Glucose (UA) Urine Blood 11/07/16 11/07/16 11/07/16 00:03 02:13 03:26 WBC Absolute Neutrophils Sodium Chloride Carbon Dioxide Creatinine Glucose POC Glucose 292 H 218 H AST ALT Alkaline Phosphatase Urine Glucose (UA) >=500 H Urine Blood LARGE H Discharge - Discharge Clinical Impression: Hyperglycemia, Paresthesias, Dehydration Abdominal pain Qualifiers: Abdominal location: upper abdomen, unspecified Qualified Code(s): R10.10 - Upper abdominal pain, unspecified Condition: Stable Disposition: HOME, SELF-CARE Additional Instructions: Your workup and evaluation is consistent with type II diabetes, dehydration, and some fatty infiltration of the liver. Take the metformin as prescribed, please follow up within the week with your primary care provider for additional management. Avoid carbohydrates in your diet. Return to the ED for any concerning or worsening symptoms. Prescriptions: Metformin HCl [Glucophage] 500 mg PO BID #30 tablet
[2016-11-07 00:50] LABS: ALANINE AMINOTRANSFERASE 81 U/L (9-52); ALBUMIN 4.3 g/dL (3.5-5.0); ALKALINE PHOSPHATASE 175 U/L (38-126); ANION GAP 16 (5-19); ASPARTATE AMINO TRANSFERASE 63 U/L (14-36); BILIRUBIN,DIRECT 0.4 mg/dL (0.0-0.4); BILIRUBIN,TOTAL 0.6 mg/dL (0.2-1.3); BLOOD UREA NITROGEN 11 mg/dL (7-20); CALCIUM 9.3 mg/dL (8.4-10.2); CARBON DIOXIDE 21 mmol/L (22-30); CHLORIDE 97 mmol/L (98-107); CREATININE RESULT 0.46 mg/dL (0.52-1.25); LIPASE 184.6 U/L (23-300); POTASSIUM 4.1 mmol/L (3.6-5.0); SODIUM 133.8 mmol/L (137-145); TOTAL PROTEIN 7.8 g/dL (6.3-8.2)
[2016-11-07 00:58] LABS: GLUCOSE 461 mg/dL (75-110)
[2016-11-07] MEDS ORDERED: INSULIN REG, HUMAN 100 UNIT/ML 3 ML VIAL (PYX) SUBCUT ONE (00:59)
[2016-11-07] MEDS ORDERED: MORPHINE SULFATE 10 MG/ML INJ IV ONE (01:36)
--- NOTE | 2016-11-07 01:59 | RADIOLOGY REPORT (SQ) ---
EXAM DESCRIPTION: U/S ABDOMEN LIMITED W/O DOP COMPLETED DATE/TIME: 11/07/2016 1:46 am REASON FOR STUDY: RUQ and epigastric pain COMPARISON: None. TECHNIQUE: Dynamic and static grayscale images acquired of the abdomen and recorded on PACS. Additio nal selected color Doppler and spectral images recorded. LIMITATIONS: Body habitus and bowel gas. FINDINGS: PANCREAS: Obscured. LIVER: No masses. Moderate hepatic steatosis. LIVER VASCULATURE: Normal directional flow of the main portal vein and hepatic veins. GALLBLADDER: No stones. Normal wall thickness. No pericholecystic fluid. ULTRASOUND-DETECTED WALKER'S SIGN: Negative. INTRAHEPATIC DUCTS AND COMMON DUCT: 0.5 cm diameter CBD and intrahepatic ducts normal caliber. No aaron ling defects. INFERIOR VENA CAVA: Normal flow. AORTA: No aneurysm. RIGHT KIDNEY: Normal size. Normal echogenicity. No solid or suspicious masses. No hydronephrosis. No calcifications. PERITONEAL AND RIGHT PLEURAL SPACE: No ascites or effusions. OTHER: No other significant findings. IMPRESSION: No acute findings. Moderate hepatic steatosis. Obscured pancreas. TECHNICAL DOCUMENTATION: JOB ID: [id number] [employer]- All Rights Reserved
[2016-11-07] MEDS ORDERED: FAMOTIDINE 20 MG TABLET PO ONE (03:16)
[2016-11-07 03:32] VITALS: BP 111/78
== END 2016-11-07 03:30 | disposition home or self-care (01) ==
LOC: ER 23:01
DX: R73.9 Hyperglycemia, unspecified (principal); E86.0 Dehydration; R10.10 Upper abdominal pain, unspecified; R10.9 Unspecified abdominal pain; R20.0 Anesthesia of skin; R39.15 Urgency of urination
CPT/HCPCS: 99284; 96374; 96375; 36415; 82962; 83690; 85025; 81025; 80053; 81001; 76705; J2270; J1815; J2405; J7030

== ENCOUNTER 2017-03-13 00:27 | Emergency (ER) | payer SELFPAY ==
[2017-03-13 01:18] LABS: APPEARANCE,URINE SLIGHTLY-CLOUDY; BILIRUBIN,URINE NEGATIVE (NEGATIVE); GLUCOSE, URINE NEGATIVE (NEGATIVE); KETONES,URINE NEGATIVE (NEGATIVE); LEUKOCYTE ESTERASE,URINE TRACE (NEGATIVE); NITRITE,URINE NEGATIVE (NEGATIVE); PROTEIN,URINE NEGATIVE (NEGATIVE); URINE SPECIFIC GRAVITY 1.029
[2017-03-13] MEDS ORDERED: KETOROLAC TROMETHAMINE 60 MG/2 ML SDV IM ONE (01:31)
[2017-03-13] MEDS ORDERED: ONDANSETRON HCL INJ/PF 4 MG/2 ML SDV IV ONE (01:31)
[2017-03-13] MEDS ORDERED: NORMAL SALINE 1000 ML 1,000 ML IV ONE (01:31)
--- NOTE | 2017-03-13 01:33 | ER Document Report ---
ED GI/ - General Mode of Arrival: Ambulatory Information source: Patient TRAVEL OUTSIDE OF THE [place] IN LAST 30 DAYS: No - HPI Patient complains to provider of: Dysuria, Flank pain - right, Hematuria Onset: Other - 1 week ago Location: RLQ, Right flank Associated symptoms: Other - see notes above <HIEN DE SANTIAGO - Last Filed: 03/13/17 01:44> <JONNATHAN VAN - Last Filed: 03/13/17 04:21> - General Chief Complaint: Urinary Problem Stated Complaint: POSSIBLE BLADDER INFECTION Time Seen by Provider: 03/13/17 01:25 Notes: 36 year old female with history of type II diabetes mellitus and back pain presents to the ED complaining of right flank pain that started 1 week ago. Patient initially attributed her flank pain as her normal back pain, but then began experiencing a 'bladder infection' 2 days ago. Patient is complaining of RLQ abdominal pain, dysuria, vomiting, diarrhea, and hematuria. Patient denies fever, chest pain, or shortness of breath. (HIEN DE SANTIAGO) - Related Data Allergies/Adverse Reactions: codeine [Codeine] Allergy (Verified 03/13/17 00:37) Past Medical History - General Information source: Patient - Social History Smoking Status: Current Every Day Smoker Chew tobacco use (# tins/day): No Frequency of alcohol use: None Drug Abuse: None Family History: Reviewed & Not Pertinent Pulmonary Medical History: Denies: Hx Asthma, Hx Bronchitis, Hx Pneumonia Renal/ Medical History: Reports: Hx Ectopic - treated with methotrexate. Denies: Hx Peritoneal Dialysis Musculoskeltal Medical History: Reports Hx Arthritis - Sciatica, Reports Other - Back pain Psychiatric Medical History: Reports: Hx Anxiety, Hx Bipolar Disorder, Hx Depression Past Surgical History: Reports: Hx Appendectomy - September 2012 - Immunizations Hx Diphtheria, Pertussis, Tetanus Vaccination: Yes <HIEN DE SANTIAGO - Last Filed: 03/13/17 01:44> Review of Systems - Review of Systems Constitutional: No symptoms reported. denies: Fever EENT: No symptoms reported Cardiovascular: No symptoms reported. denies: Chest pain Respiratory: No symptoms reported. denies: Short of breath Gastrointestinal: See HPI, Abdominal pain - RLQ, Nausea, Vomiting Genitourinary: See HPI, Dysuria, Flank pain - right, Hematuria Female Genitourinary: No symptoms reported Musculoskeletal: No symptoms reported Skin: No symptoms reported Hematologic/Lymphatic: No symptoms reported Neurological/Psychological: No symptoms reported -: Yes All other systems reviewed and negative <DE SANTIAGOHIEN - Last Filed: 03/13/17 01:44> Physical Exam <DE SANTIAGO,HIEN - Last Filed: 03/13/17 01:44> <JONNATHAN VAN - Last Filed: 03/13/17 04:21> - Vital signs Vitals: Temp Pulse Resp BP Pulse Ox 98.7 F 116 H 20 146/85 H 98 03/13/17 00:38 03/13/17 00:38 03/13/17 00:38 03/13/17 00:38 03/13/17 00:38 - Notes Notes: GENERAL: Alert, interacts well. No acute distress. HEAD: Normocephalic, atraumatic. EYES: Pupils equal, round, and reactive to light. Extraocular movements intact. ENT: Oral mucosa moist, tongue midline. NECK: Full range of motion. Supple. Trachea midline. LUNGS: Clear to auscultation bilaterally, no wheezes, rales, or rhonchi. No respiratory distress. HEART: Regular rate and rhythm. No murmurs, gallops, or rubs. ABDOMEN: Soft. Non-distended. Tenderness to palpation of the RLQ and right lateral side. EXTREMITIES: Moves all 4 extremities spontaneously. No edema. No cyanosis. BACK: Right CVA tenderness to percussion. NEUROLOGICAL: Alert and oriented x3. Normal speech. PSYCH: Normal affect, normal mood. SKIN: Warm, dry, normal turgor. No rashes or lesions noted. (HIEN DE SANTIAGO) Appears mildly uncomfortable and anxious. (JONNATHAN VAN) Course <HIEN DE SANTIAGO - Last Filed: 03/13/17 01:44> - Laboratory Result Diagrams: 03/13/17 02:20 03/13/17 02:20 <JONNATHAN VAN - Last Filed: 03/13/17 04:21> - Re-evaluation Re-evalutation: 03/13/17 03:05 CBC unremarkable, CMP grossly unremarkable, urinalysis shows large blood and trace leukocyte esterase, 5 WBCs greater than 182 RBCs, trace bacteria and 5 squamous epithelial cells, test is negative. CT scan does not show any kidney stones. I do suspect the patient just recently passed a kidney stone, given the bacteria and the white blood cells I will treat the patient for a urinary tract infection as well with Macrobid. Recommend taking Pyridium and ibuprofen, discharged home. Return for fevers or worsening pain. (JONNATHAN VAN) - Vital Signs Vital signs: Temp Pulse Resp BP Pulse Ox 97.8 F 102 H 20 131/51 H 97 03/13/17 03:41 03/13/17 03:41 03/13/17 03:41 03/13/17 03:41 03/13/17 03:41 - Laboratory Laboratory results interpreted by me: 03/13/17 03/13/17 03/13/17 00:54 02:20 02:20 RDW 14.2 H Chloride 109 H Carbon Dioxide 21 L Urine Blood LARGE H Urine Urobilinogen 2.0 H Ur Leukocyte Esterase TRACE H Discharge <HIEN DE SANTIAGO - Last Filed: 03/13/17 01:44> <JONNATHAN VAN - Last Filed: 03/13/17 04:21> - Discharge Clinical Impression: Urinary tract infection Qualifiers: Urinary tract infection type: acute cystitis Hematuria presence: with hematuria Qualified Code(s): N30.01 - Acute cystitis with hematuria Hypertension Qualifiers: Hypertension type: essential hypertension Qualified Code(s): I10 - Essential ( primary) hypertension Condition: Stable Disposition: HOME, SELF-CARE Additional Instructions: You have signs of both blood and infection in your urine however your CAT scan did not show any kidney stone. I suspect you have just recently passed a kidney stone. I am prescribing antibiotics to help to treat her urinary tract infection. Please take your antibiotics as directed until they are gone. Please also take the Pyridium to help with your pain, you may also take ibuprofen 800 mg every 8 hours to help with your pain. Return for fevers, worsening pain or inability to urinate. Please also return for any new or concerning symptoms. Prescriptions: Ibuprofen 800 mg PO TIDP PRN #20 tablet PRN Reason: Nitrofurantoin/Nitrofuran Mac [Macrobid 100 mg Capsule] 1 tab PO BID #14 capsule Phenazopyridine HCl [Pyridium 200 mg Tablet] 200 mg PO TID #15 tablet Forms: Return to Work Scribe Attestation: 03/13/17 04:21 I personally performed the services described in the documentation, reviewed and edited the documentation which was dictated to the scribe in my presence, and it accurately records my words and actions. (JONNATHAN VAN) Scribe Documentation - Scribe Written by Scribe:: Fabrice Farias, 03/13/2017 [id number] acting as scribe for :: Rosalinda <HIEN DE SANTIAGO - Last Filed: 03/13/17 01:44>
[2017-03-13 02:39] LABS: ABSOLUTE EOSINOPHILS # (AUTO) 0.5 10^3/uL (0.0-0.6); ABSOLUTE MONOCYTES (AUTO) 0.7 10^3/uL (0.1-1.4); ABSOLUTE NEUT (AUTO) 6.3 10^3/uL (1.7-8.2); BASOPHILS % (AUTO) 0.5 % (0-2); EOSINOPHILS % (AUTO) 5.1 % (0-6); HEMATOCRIT 39.4 % (36.0-47.0); HEMOGLOBIN 13.9 g/dL (12.0-15.5); HGB HCT DIFFERENCE 2.3; LYMPHOCYTES % (AUTO) 20.7 % (13-45); MEAN CORPUSCULAR HEMOGLOBIN 30.6 pg (27.0-33.4); MEAN CORPUSCULAR HGB CONC 35.3 g/dL (32.0-36.0); MEAN CORPUSCULAR VOLUME 87 fl (80-97); MONOCYTES % (AUTO) 7.1 % (3-13); RED BLOOD COUNT 4.54 10^6/uL (3.72-5.28); RED CELL DISTRIBUTION WIDTH 14.2 % (11.5-14.0); SEGMENTED NEUTROPHILS % (AUTO) 66.6 % (42-78); WHITE BLOOD COUNT 9.5 10^3/uL (4.0-10.5)
--- NOTE | 2017-03-13 02:42 | RADIOLOGY REPORT (SQ) ---
EXAM DESCRIPTION: CT LTD RENAL STONE PROTOCOL ON COMPLETED DATE/TIME: 03/13/2017 2:31 am REASON FOR STUDY: flank pain, hematuria, UTI COMPARISON: 06/22/2016 TECHNIQUE: CT scan of the abdomen and pelvis performed without intravenous or oral contrast. Images reviewed with lung, soft tissue, and bone windows. Reconstructed coronal and sagittal MPR images revi ewed. All images stored on PACS. All CT scanners at this facility use dose modulation, iterative reconstruction, and/or weight based d osing when appropriate to reduce radiation dose to as low as reasonably achievable (ALARA). [facility]: Dose Right [facility]: CareDose [facility]: Dose Right [facility]: Teradose 4D [facility]: Smart Pinger RADIATION DOSE: Up-to-date CT equipment and radiation dose reduction techniques were employed. CTDIv ol: 19.2 mGy. DLP: 1104 mGy-cm.mGy. LIMITATIONS: None. FINDINGS: LOWER CHEST: No significant findings. No nodules or infiltrates. NON-CONTRASTED LIVER, SPLEEN, ADRENALS: Fatty liver. Spleen and adrenal glands normal. PANCREAS: No masses. No peripancreatic inflammatory changes. GALLBLADDER: No identified stones by CT criteria. No inflammatory changes to suggest cholecystitis. RIGHT KIDNEY AND URETER: No suspicious masses. Assessment limited by lack of IV contrast. No signif icant calcifications. No hydronephrosis or hydroureter. LEFT KIDNEY AND URETER: No suspicious masses. Assessment limited by lack of IV contrast. No signifi cant calcifications. No hydronephrosis or hydroureter. AORTA AND RETROPERITONEUM: No aneurysm. No retroperitoneal masses or adenopathy. BOWEL AND PERITONEAL CAVITY: No obvious masses or inflammatory changes. No free fluid. APPENDIX: Not visualized. PELVIS, BLADDER, AND ABDOMINAL WALL:No abnormal masses. No free fluid. Bladder normal. BONES: No significant findings. OTHER: No other significant finding. IMPRESSION: NO SIGNIFICANT OR ACUTE PROCESS IN THE ABDOMEN OR PELVIS. COMMENT: Quality ID # [id number]: Final reports with documentation of one or more dose reduction techniques (e.g., Automated exposure control, adjustment of the mA and/or kV according to patient size, use of iterative reconstruction technique) TECHNICAL DOCUMENTATION: JOB ID: [id number]- All Rights Reserved
[2017-03-13 02:55] LABS: ALANINE AMINOTRANSFERASE 40 U/L (9-52); ALBUMIN 4.2 g/dL (3.5-5.0); ALKALINE PHOSPHATASE 113 U/L (38-126); ANION GAP 14 (5-19); ASPARTATE AMINO TRANSFERASE 27 U/L (14-36); BILIRUBIN,DIRECT 0.3 mg/dL (0.0-0.4); BILIRUBIN,TOTAL 0.4 mg/dL (0.2-1.3); BLOOD UREA NITROGEN 13 mg/dL (7-20); CALCIUM 9.4 mg/dL (8.4-10.2); CARBON DIOXIDE 21 mmol/L (22-30); CHLORIDE 109 mmol/L (98-107); CREATININE RESULT 0.63 mg/dL (0.52-1.25); GLUCOSE 95 mg/dL (75-110); POTASSIUM 3.9 mmol/L (3.6-5.0); SODIUM 144.4 mmol/L (137-145); TOTAL PROTEIN 6.8 g/dL (6.3-8.2)
[2017-03-13] MEDS ORDERED: NITROFURANTOIN MONOHYD/M-CRYST 100 MG CAPSULE PO ONE (03:36)
[2017-03-13 03:44] VITALS: BP 131/51
[2017-03-13] MEDS ORDERED: HYDROCODONE/ACETAMINOPHEN 5-325 MG TABLET PO ONE (03:59)
== END 2017-03-13 04:16 | disposition home or self-care (01) ==
LOC: ER 00:27
DX: N30.01 Acute cystitis with hematuria (principal); I10 Essential (primary) hypertension; E11.9 Type 2 diabetes mellitus without complications; R19.7 Diarrhea, unspecified; R11.2 Nausea with vomiting, unspecified; R30.0 Dysuria; R10.31 Right lower quadrant pain; F17.200 Nicotine dependence, unspecified, uncomplicated; Z88.5 Allergy status to narcotic agent
CPT/HCPCS: 99284; 96372; 96361; 96374; 36415; 85025; 81025; 80053; 81001; 76380; J1885; J2405; J7030; J8499

== ENCOUNTER 2017-07-23 20:05 | Emergency (ER) | payer SELFPAY ==
[2017-07-23 21:20] LABS: ABSOLUTE BASOPHILS # (AUTO) 0.2 10^3/uL (0.0-0.2); ABSOLUTE EOSINOPHILS # (AUTO) 0.4 10^3/uL (0.0-0.6); ABSOLUTE LYMPHOCYTES (AUTO) 3.4 10^3/uL (0.5-4.7); ABSOLUTE MONOCYTES (AUTO) 0.8 10^3/uL (0.1-1.4); ABSOLUTE NEUT (AUTO) 11.3 10^3/uL (1.7-8.2); EOSINOPHILS % (AUTO) 2.6 % (0-6); HEMATOCRIT 42.2 % (36.0-47.0); HEMOGLOBIN 14.7 g/dL (12.0-15.5); MEAN CORPUSCULAR HEMOGLOBIN 29.8 pg (27.0-33.4); MEAN CORPUSCULAR HGB CONC 34.7 g/dL (32.0-36.0); MEAN CORPUSCULAR VOLUME 86 fl (80-97); MONOCYTES % (AUTO) 4.9 % (3-13); PLATELET COUNT 384 10^3/uL (150-450); RED BLOOD COUNT 4.92 10^6/uL (3.72-5.28); RED CELL DISTRIBUTION WIDTH 13.7 % (11.5-14.0); SEGMENTED NEUTROPHILS % (AUTO) 70.5 % (42-78); TOTAL CELLS COUNTED % (AUTO) 100 %
[2017-07-23] MEDS ORDERED: KETOROLAC TROMETHAMINE INJ/PF 30 MG/1 ML SDV IV ONE (21:23)
[2017-07-23] MEDS ORDERED: ONDANSETRON HCL INJ/PF 4 MG/2 ML SDV IV ONE (21:23)
[2017-07-23] MEDS ORDERED: FENTANYL CITRATE INJ/PF 100 MCG/2 ML AMPUL IV ONE (21:23)
[2017-07-23 21:41] LABS: ALANINE AMINOTRANSFERASE 37 U/L (9-52); ALBUMIN 4.8 g/dL (3.5-5.0); ALKALINE PHOSPHATASE 83 U/L (38-126); ANION GAP 16 (5-19); ASPARTATE AMINO TRANSFERASE 21 U/L (14-36); BILIRUBIN,DIRECT 0.1 mg/dL (0.0-0.4); BILIRUBIN,TOTAL 0.5 mg/dL (0.2-1.3); BLOOD UREA NITROGEN 13 mg/dL (7-20); CARBON DIOXIDE 20 mmol/L (22-30); CHLORIDE 104 mmol/L (98-107); GLUCOSE 119 mg/dL (75-110); SODIUM 140.3 mmol/L (137-145); TOTAL PROTEIN 7.3 g/dL (6.3-8.2)
[2017-07-23] MEDS ORDERED: HYDROMORPHONE HCL INJ/PF 2 MG/ML AMPULE IV ONE (22:36)
--- NOTE | 2017-07-23 22:40 | ER Document Report ---
ED General - General Chief Complaint: Abdominal Pain Stated Complaint: ABDOMINAL PAIN Time Seen by Provider: 07/23/17 20:47 Notes: Patient is a 37 year old female with a past medical history of an ectopic treated medically with methotrexate as well as an appendectomy who presents with acute onset of right lower abdominal pain. Patient states that started gradually as an aching pain to the area but is become much more severe since that time now with a constant, throbbing, stabbing pain to the right mid lower abdomen. Nothing improves or worsens this pain. She denies any history of similar symptoms in the past. She denies any associated vomiting, diarrhea, vaginal bleeding, vaginal discharge, or dysuria. She has not seen her general doctor regarding today's concerns. She denies any trauma to the abdomen. TRAVEL OUTSIDE OF THE [place] IN LAST 30 DAYS: No - Related Data Allergies/Adverse Reactions: codeine [Codeine] Allergy (Verified 03/13/17 00:37) Past Medical History - General Information source: Patient - Social History Smoking Status: Current Every Day Smoker Chew tobacco use (# tins/day): No Frequency of alcohol use: None Drug Abuse: None Lives with: Parents Family History: Reviewed & Not Pertinent Patient has suicidal ideation: No Patient has homicidal ideation: No Pulmonary Medical History: Denies: Hx Asthma, Hx Bronchitis, Hx Pneumonia Endocrine Medical History: Reports: Hx Diabetes Mellitus Type 2 Renal/ Medical History: Reports: Hx Ectopic - treated with methotrexate. Denies: Hx Peritoneal Dialysis Musculoskeltal Medical History: Reports Hx Arthritis - Sciatica Psychiatric Medical History: Reports: Hx Anxiety, Hx Attention Deficit Hyperactivity Disorder, Hx Bipolar Disorder, Hx Depression Past Surgical History: Reports: Hx Appendectomy - September 2012 - Immunizations Hx Diphtheria, Pertussis, Tetanus Vaccination: Yes Review of Systems - Review of Systems Notes: Constitutional: Negative for fever. HENT: Negative for sore throat. Eyes: Negative for visual changes. Cardiovascular: Negative for chest pain. Respiratory: Negative for shortness of breath. Gastrointestinal: Positive for lower abdominal pain Genitourinary: Negative for dysuria. Musculoskeletal: Negative for back pain. Skin: Negative for rash. Neurological: Negative for headaches, weakness or numbness. 10 point ROS negative except as marked above and in HPI. Physical Exam - Vital signs Vitals: Resp Pulse Ox 20 98 07/23/17 21:04 07/23/17 21:04 Interpretation: Normal Notes: PHYSICAL EXAMINATION: GENERAL: Appears uncomfortable but in no acute distress. HEAD: Atraumatic, normocephalic. EYES: Pupils equal round and reactive to light, extraocular movements intact, sclera anicteric, conjunctiva are normal. ENT: nares patent, oropharynx clear without exudates. Moderately dry mucous membranes. NECK: Normal range of motion, supple without lymphadenopathy LUNGS: Breath sounds clear to auscultation bilaterally and equal. No wheezes rales or rhonchi. HEART: Regular tachycardia without murmurs ABDOMEN: Soft, focal tenderness the right adnexa without any other localized areas of tenderness, normoactive bowel sounds. No guarding, no rebound. No masses appreciated. EXTREMITIES: Normal range of motion, no pitting or edema. No cyanosis. NEUROLOGICAL: No focal neurological deficits. Moves all extremities spontaneously and on command. PSYCH: Normal mood, normal affect. SKIN: Warm, Dry, normal turgor, no rashes or lesions noted. Course - Re-evaluation Re-evalutation: 07/23/17 22:38 Patient presents with relatively acute onset of right adnexal pain with focal reproduction of her pain on palpation of the right adnexa. She has no other localized areas of abdominal tenderness rebound or guarding. Patient is very status post appendectomy. Clinical history is most concerning for possible ovarian torsion versus an ovarian cyst with associated rupture. Tubo-ovarian abscess is also on the differential although the acuity of her presentation as well as the absence of fever or constitutional symptoms goes against this diagnosis. Pelvic inflammatory disease also seems quite unlikely as patient is not having any vaginal discharge and again has very localized abdominal pain. Will proceed with a transvaginal ultrasound to further assess. Alternative diagnostic considerations would be a localized bowel perforation although this seems quite unusual given the patient is not having any generalized abdominal tenderness, she does not have pain out of proportion to exam and has no risk factors for mesenteric ischemia, she has no upper abdominal pain to suggest an acute pancreatitis or biliary pathology, and does not have any vomiting and continues to pass flatus and have bowel movements which goes against the diagnosis of bowel obstruction. Will proceed with pain control and await the results of ultrasound testing. 07/24/17 01:17 Ultrasound was unable to visualize the ovaries on either side making this a non- useful study. Will proceed with CT abdomen pelvis as I do need to visualize the right adnexa and the right lower quadrant. Patient's vitals have overall improved and she is now appearing much more comfortable. 07/24/17 02:24 CT scan of the abdomen pelvis does visualize the ovaries which do not appear dilated. There is no evidence of free fluid or free air on CT. Patient's pain continues to be much improved. At this time point the exact etiology of her lower abdominal pain is uncertain although does not appear to be from any acute life-threatening pathology at this point. - Vital Signs Vital signs: Temp Pulse Resp BP Pulse Ox 97.9 F 17 131/86 H 98 07/24/17 01:47 07/23/17 22:01 07/23/17 22:01 07/23/17 22:01 - Laboratory Result Diagrams: 07/23/17 21:04 07/23/17 21:04 Laboratory results interpreted by me: 07/23/17 07/23/17 07/23/17 21:04 21:04 22:00 WBC 16.0 H Absolute Neutrophils 11.3 H Carbon Dioxide 20 L Glucose 119 H Urine Protein 30 H Ur Leukocyte Esterase SMALL H - Diagnostic Test Radiology reviewed: Reports reviewed Discharge - Discharge Clinical Impression: Lower abdominal pain, Dehydration Condition: Good Disposition: HOME, SELF-CARE Additional Instructions: You have been seen in the Emergency Department (ED) for abdominal pain. Your evaluation did not identify a clear cause of your symptoms but was generally reassuring. Please follow up with your doctor as soon as possible regarding today's emergent visit and the symptoms that are bothering you. Return to the ED if your abdominal pain worsens or fails to improve, you develop bloody vomiting, bloody diarrhea, you are unable to tolerate fluids due to vomiting, fever greater than 101, or other symptoms that concern you. Referrals: SUYAPA ALEXANDER MD [Primary Care Provider] - Follow up as needed
[2017-07-23 23:25] LABS: APPEARANCE,URINE TURBID; BILIRUBIN,URINE NEGATIVE (NEGATIVE); COLOR,URINE BLUE; GLUCOSE, URINE NEGATIVE (NEGATIVE); KETONES,URINE NEGATIVE (NEGATIVE); LEUKOCYTE ESTERASE,URINE SMALL (NEGATIVE); NITRITE,URINE NEGATIVE (NEGATIVE); PROTEIN,URINE 30 mg/dL (NEGATIVE); UROBILINOGEN,URINE NEGATIVE mg/dL (<2.0)
[2017-07-24] MEDS ORDERED: HYDROMORPHONE HCL INJ/PF 2 MG/ML AMPULE IV ONE (01:00)
--- NOTE | 2017-07-24 01:21 | RADIOLOGY REPORT (SQ) ---
EXAM DESCRIPTION: U/S NON-OB PELVIS TV W/O DOP CLINICAL HISTORY: 37 years Female, right adnexal pain COMPARISON: None. TECHNIQUE: Complete pelvic ultrasound with transvaginal imaging. FINDINGS: The uterus measures 8.0 x 4.0 x 4.7 cm. Endometrial thickness of 0.3 cm. Cervical length of 2.4 cm. Close. No myometrial abnormalities. No large adnexal masses. The ovaries are not visualized bilaterally due to overlying bowel gas. IMPRESSION: 1. No sonographic abnormality in the pelvis identified. 2. Ovaries are not identified due to overlying bowel gas.
--- NOTE | 2017-07-24 02:18 | RADIOLOGY REPORT (SQ) ---
EXAM DESCRIPTION: CT ABDOMEN AND PELVIS WITH CONTRAST CLINICAL HISTORY: rlq abdominal pain, no visualized ovaries on us COMPARISON: None Available. TECHNIQUE: CT of the abdomen and pelvis are performed during IV bolus administration of 100 mL of Isovue-370. DLP: 2324.80 mGycm FINDINGS: Abdomen: The liver has normal size and decreased density. No intrahepatic mass or biliary dilatation. No calcified gallstones. The spleen, pancreas, and adrenal glands are unremarkable. The kidneys have normal size and contour without evidence of solid mass or hydronephrosis. The aorta and IVC have normal caliber and position. The portal vein patent. The proximal visceral and renal arteries are patent. No free intraperitoneal air. The stomach and duodenum have normal course. Pelvis: Uterus and ovaries are not enlarged. Urinary bladder is unremarkable. No free pelvic fluid or lymphadenopathy. No dilated loops of large or small bowel. The appendix is not definitely identified however no right lower quadrant inflammatory change. The visualized lung bases are clear. No destructive bone lesions identified. IMPRESSION: 1. No acute inflammatory or obstructive abnormality identified. This exam was performed according to our departmental dose-optimization program, which includes automated exposure control, adjustment of the mA and/or kV according to patient size and/or use of iterative reconstruction technique.
[2017-07-24] MEDS ORDERED: HYDROCODONE/ACETAMINOPHEN 5-325 MG (6 TAB/ER DISP) PO PRN (02:36)
[2017-07-24 03:02] VITALS: BP 126/86
== END 2017-07-24 02:57 | disposition home or self-care (01) ==
LOC: ER 20:05
DX: E86.0 Dehydration (principal); R10.30 Lower abdominal pain, unspecified; F17.200 Nicotine dependence, unspecified, uncomplicated; E11.9 Type 2 diabetes mellitus without complications; Z88.6 Allergy status to analgesic agent
CPT/HCPCS: 96376; 99284; 96374; 96375; 36415; 83690; 85025; 81025; 80053; 81001; 76830; 74177; J3010; J1885; J1170 ×2; J2405

== ENCOUNTER 2017-07-25 19:23 | Emergency (ER) | payer SELFPAY ==
[2017-07-25] MEDS ORDERED: NORMAL SALINE 1000 ML 1,000 ML IV ONE ×2 (20:16→21:35)
[2017-07-25] MEDS ORDERED: ONDANSETRON HCL INJ/PF 4 MG/2 ML SDV IV ONE ×2 (20:17→23:49)
[2017-07-25] MEDS ORDERED: FENTANYL CITRATE INJ/PF 100 MCG/2 ML AMPUL IV ONE (20:17)
[2017-07-25] MEDS ORDERED: KETOROLAC TROMETHAMINE INJ/PF 30 MG/1 ML SDV IV ONE (20:17)
--- NOTE | 2017-07-25 20:20 | ER Document Report ---
ED GI/ - General Chief Complaint: Abdominal Pain Stated Complaint: ABDOMINAL PAIN,NAUSEA Time Seen by Provider: 07/25/17 20:05 Notes: Patient is a 37-year-old female comes emergency department for chief complaint of sharp right mid to lower abdominal pain that radiates around to her lower back occasionally, she states that she was seen here in the emergency department 2 days ago, states her workup did not show anything abnormal, states she was doing well but today pain started worsening, she became nauseated and then tonight pain became severe. She states she had a normal bowel movement within the past 24 hours, nonbloody, she reports some clearish vaginal discharge , denies vaginal bleeding, she denies dysuria, fever or chills. She has had an appendectomy, she had an ectopic with this was treated with medication and not surgically. Past medical history of type 2 diabetes, is also on Klonopin, amphetamine, Zyprexa, Zoloft. at bedside. TRAVEL OUTSIDE OF THE [place] IN LAST 30 DAYS: No - Related Data Allergies/Adverse Reactions: codeine [Codeine] Allergy (Verified 03/13/17 00:37) Past Medical History - General Information source: Patient, Relative - Social History Smoking Status: Never Smoker Frequency of alcohol use: Occasional Drug Abuse: Marijuana Lives with: Family Family History: Reviewed & Not Pertinent Pulmonary Medical History: Denies: Hx Asthma, Hx Bronchitis, Hx Pneumonia Endocrine Medical History: Reports: Hx Diabetes Mellitus Type 2 Renal/ Medical History: Reports: Hx Ectopic - treated with methotrexate. Denies: Hx Peritoneal Dialysis Musculoskeltal Medical History: Reports Hx Arthritis - Sciatica Psychiatric Medical History: Reports: Hx Anxiety, Hx Attention Deficit Hyperactivity Disorder, Hx Bipolar Disorder, Hx Depression Past Surgical History: Reports: Hx Appendectomy - September 2012 - Immunizations Hx Diphtheria, Pertussis, Tetanus Vaccination: Yes Review of Systems - Review of Systems Constitutional: No symptoms reported EENT: No symptoms reported Cardiovascular: No symptoms reported Respiratory: No symptoms reported Gastrointestinal: See HPI Genitourinary: See HPI Female Genitourinary: See HPI Musculoskeletal: No symptoms reported Skin: No symptoms reported Hematologic/Lymphatic: No symptoms reported Neurological/Psychological: No symptoms reported Physical Exam - Vital signs Vitals: Temp Pulse Resp BP Pulse Ox 97.5 F 129 H 18 112/71 98 07/25/17 19:41 07/25/17 19:41 07/25/17 19:41 07/25/17 19:41 07/25/17 19:41 Interpretation: Normal - General General appearance: Anxious In distress: Mild - Patient does appear to be uncomfortable, shifting a lot in the bed - HEENT Head: Normocephalic, Atraumatic Eyes: Normal Pupils: PERRL - Respiratory Respiratory status: No respiratory distress Chest status: Nontender Breath sounds: Normal Chest palpation: Normal - Cardiovascular Rhythm: Regular, Tachycardia Heart sounds: Normal auscultation, S1 appreciated, S2 appreciated Murmur: No Normal capillary refill: Yes - Abdominal Inspection: Normal Distension: No distension Bowel sounds: Normal Tenderness: Tender - Tender in both lower abdominal/pelvic quadrants, no focal tenderness or guarding, no rigidity, no rebound tenderness. No: McBurney's point, Vee's sign, Guarding Organomegaly: No organomegaly - Genitourinary External exam: Normal Speculum exam: Cervix closed, Vaginal discharge - Moderate amount of vaginal discharge, clear and white Vaginal bleeding: None Bimanuel exam: No: Cervical motion tender - Back Back: Normal, Nontender. No: Tender, CVA tenderness - Extremities General upper extremity: Normal inspection, Nontender, Normal color, Normal ROM , Normal temperature General lower extremity: Normal inspection, Nontender, Normal color, Normal ROM , Normal temperature, Normal weight bearing. No: Richy's sign - Neurological Neuro grossly intact: Yes Cognition: Normal Orientation: AAOx4 Marlene Coma Scale Eye Opening: Spontaneous [place] Coma Scale Verbal: Oriented Marlene Coma Scale Motor: Obeys Commands Marlene Coma Scale Total: 15 Speech: Normal Motor strength normal: LUE, RUE, LLE, RLE Sensory: Normal - Psychological Associated symptoms: Normal affect, Normal mood - Skin Skin Temperature: Warm Skin Moisture: Dry Skin Color: Normal Course - Re-evaluation Re-evalutation: Patient does have leukocytosis although this is slightly decreased from prior. No fever, tachycardic on initial examination but patient also appears anxious and she has dry mucous membranes. Given IV fluids, pain medication, nausea medication. Patient with generalized lower abdominal tenderness without any focal tenderness or guarding. Upper abdomen is benign. Pelvic examination shows vaginal discharge, no obvious cervical motion tenderness, 3+ bacteria and 2+ white blood cells, negative gonorrhea, chlamydia , trichomonas. Urine shows dehydration but is otherwise unremarkable. Chemistry generally unremarkable. Patient already had a CAT scan within the past 48 hours, already had an ultrasound that did not show any cysts, patient has already had an appendectomy. Patient's tachycardia resolved. I discussed different possibilities, appears to be either pelvic or bowel in nature, after discussion decision was made to treat patient for suspected PID, refer patient to gastroenterology, and also discussed return precautions. Patient and significant other state understanding and agreement. - Vital Signs Vital signs: Temp Pulse Resp BP Pulse Ox 98.1 F 129 H 14 118/69 97 07/26/17 01:28 07/25/17 19:41 07/26/17 01:13 07/26/17 01:13 07/26/17 01:12 - Laboratory Result Diagrams: 07/25/17 20:24 07/25/17 20:24 Laboratory results interpreted by me: 07/25/17 07/25/17 07/25/17 20:24 20:24 22:00 WBC 14.3 H Absolute Neutrophils 10.5 H Carbon Dioxide 21 L Glucose 111 H Urine Urobilinogen 2.0 H Discharge - Discharge Clinical Impression: Lower abdominal pain, Dehydration, Vaginal discharge Condition: Stable Disposition: HOME, SELF-CARE Additional Instructions: You have been treated for a pelvic infection. Finished treatment by taking Flagyl as prescribed to completion. Take Phenergan if needed for nausea, take pain medication only if needed, I recommend you follow-up with gastroenterology as well for additional evaluation and management. See referral to call. Return if you worsen including vomiting, worsening pain, fever of 100.4 or greater, or any other concerning or worsening symptoms. Prescriptions: Morphine Sulfate [Morphine Ir 15 Mg Tablet] 15 mg PO Q4HP PRN #10 tablet PRN Reason: Metronidazole [Flagyl 500 mg Tablet] 500 mg PO BID #14 tablet Promethazine HCl [Phenergan 25 mg Tablet] 1 - 2 tab PO Q6H PRN #20 tablet PRN Reason: Referrals: SHIELA SALDANA MD [ACTIVE STAFF] - Follow up as needed MIRA CARLISLE MD [ACTIVE STAFF] - Follow up as needed
[2017-07-25 20:34] LABS: ABSOLUTE BASOPHILS # (AUTO) 0.2 10^3/uL (0.0-0.2); ABSOLUTE EOSINOPHILS # (AUTO) 0.4 10^3/uL (0.0-0.6); ABSOLUTE LYMPHOCYTES (AUTO) 2.4 10^3/uL (0.5-4.7); ABSOLUTE MONOCYTES (AUTO) 0.8 10^3/uL (0.1-1.4); ABSOLUTE NEUT (AUTO) 10.5 10^3/uL (1.7-8.2); BASOPHILS % (AUTO) 1.2 % (0-2); EOSINOPHILS % (AUTO) 2.6 % (0-6); HEMATOCRIT 41.5 % (36.0-47.0); HEMOGLOBIN 14.5 g/dL (12.0-15.5); LYMPHOCYTES % (AUTO) 17.1 % (13-45); MEAN CORPUSCULAR HEMOGLOBIN 30.1 pg (27.0-33.4); MEAN CORPUSCULAR VOLUME 86 fl (80-97); MONOCYTES % (AUTO) 5.3 % (3-13); PLATELET COUNT 380 10^3/uL (150-450); RED BLOOD COUNT 4.82 10^6/uL (3.72-5.28); RED CELL DISTRIBUTION WIDTH 13.5 % (11.5-14.0); SEGMENTED NEUTROPHILS % (AUTO) 73.8 % (42-78); TOTAL CELLS COUNTED % (AUTO) 100 %; WHITE BLOOD COUNT 14.3 10^3/uL (4.0-10.5)
[2017-07-25 20:56] LABS: ALANINE AMINOTRANSFERASE 44 U/L (9-52); ALBUMIN 4.6 g/dL (3.5-5.0); ALKALINE PHOSPHATASE 79 U/L (38-126); ANION GAP 11 (5-19); ASPARTATE AMINO TRANSFERASE 27 U/L (14-36); BILIRUBIN,DIRECT 0.4 mg/dL (0.0-0.4); BILIRUBIN,TOTAL 0.6 mg/dL (0.2-1.3); BLOOD UREA NITROGEN 14 mg/dL (7-20); CALCIUM 10.2 mg/dL (8.4-10.2); CARBON DIOXIDE 21 mmol/L (22-30); CHLORIDE 107 mmol/L (98-107); GLUCOSE 111 mg/dL (75-110); POTASSIUM 4.4 mmol/L (3.6-5.0); SODIUM 138.7 mmol/L (137-145); TOTAL PROTEIN 7.7 g/dL (6.3-8.2)
[2017-07-25] MEDS ORDERED: HYDROMORPHONE HCL INJ/PF 2 MG/ML AMPULE IV ONE ×2 (21:43→23:49)
[2017-07-25 22:29] LABS: BACTERIA (WET MOUNT) 3+ BACTERIA SEEN; T.VAGINALIS (WET MOUNT) NO TRICHOMONAS SEEN; WBCS (WET MOUNT) 2+ WBCS SEEN; YEAST (WET MOUNT) NO YEAST SEEN
[2017-07-25 22:45] LABS: APPEARANCE,URINE SLIGHTLY-CLOUDY; BILIRUBIN,URINE NEGATIVE (NEGATIVE); COLOR,URINE YELLOW; GLUCOSE, URINE NEGATIVE (NEGATIVE); KETONES,URINE NEGATIVE (NEGATIVE); LEUKOCYTE ESTERASE,URINE NEGATIVE (NEGATIVE); NITRITE,URINE NEGATIVE (NEGATIVE); PROTEIN,URINE NEGATIVE (NEGATIVE); URINE SPECIFIC GRAVITY 1.031
[2017-07-25 23:02] LABS: URINE AMPHETAMINES SCREEN UNCONFIRMED POSITIVE; URINE BARBITURATES SCREEN NEGATIVE; URINE BENZODIAZEPINES SCREEN UNCONFIRMED POSITIVE; URINE COCAINE SCREEN NEGATIVE; URINE MARIJUANA (THC) SCREEN UNCONFIRMED POSITIVE; URINE METHADONE SCREEN NEGATIVE; URINE PHENCYCLIDINE SCREEN NEGATIVE
[2017-07-25] MEDS ORDERED: CEFTRIAXONE INJ 250 MG VIAL IV ONE (23:49)
[2017-07-25] MEDS ORDERED: METRONIDAZOLE 500 MG TABLET PO ONE (23:50)
[2017-07-25] MEDS ORDERED: AZITHROMYCIN 250 MG TABLET PO ONE (23:50)
[2017-07-25] MEDS ORDERED: HYDROCODONE/ACETAMINOPHEN 5-325 MG (6 TAB/ER DISP) PO PRN (23:51)
[2017-07-26 00:01] LABS: CHLAM PCR NOT DETECTED (NOT DETECT); GON PCR NOT DETECTED (NOT DETECT)
[2017-07-26 01:24] VITALS: BP 118/69
== END 2017-07-26 01:29 | disposition home or self-care (01) ==
LOC: ER 19:23
DX: R10.30 Lower abdominal pain, unspecified (principal); R11.0 Nausea; N89.8 Other specified noninflammatory disorders of vagina; E86.0 Dehydration; D72.829 Elevated white blood cell count, unspecified; E11.9 Type 2 diabetes mellitus without complications; F41.9 Anxiety disorder, unspecified; F90.9 Attention-deficit hyperactivity disorder, unspecified type; F31.9 Bipolar disorder, unspecified; Z79.899 Other long term (current) drug therapy; Z88.5 Allergy status to narcotic agent; Z90.49 Acquired absence of other specified parts of digestive tract; Z87.59 Personal history of other complications of pregnancy, childbirth and the puerperium; R00.0 Tachycardia, unspecified
CPT/HCPCS: 96376; 99284; 96361; 96375; 96365; 36415; 87210; 85025; 81025; 80053; 81001; 80307; 87491; 87591; J3010; J1885; J1170 ×2; J2405 ×2; J7030; J0696

== ENCOUNTER 2017-12-06 22:08 | Emergency (ER) | payer SELFPAY ==
--- NOTE | 2017-12-07 00:31 | ER Document Report ---
ED Medical Screen (RME) - General Chief Complaint: Pelvic Pain Stated Complaint: PELVIC AND BACK PAIN Time Seen by Provider: 12/07/17 00:30 Mode of Arrival: Ambulatory Information source: Patient Notes: 37-year-old female presents to ED for complaint of pain in her pelvic area. She states she was here recently for the same pain and was told that she had a pelvic infection but was not told what kind of infection. She states she has a yellow discharge that does not smell foul. She states she has had some nausea and vomiting and dizziness and sometimes when the pain gets very bad she feels like she might pass out. She denies any urinary symptoms. Her last visit here was in January and there was no pelvic infection at that time she was positive for multiple drugs I have greeted and performed a rapid initial assessment of this patient. A comprehensive ED assessment and evaluation of the patient, analysis of test results and completion of medical decision making process will be conducted by an additional ED providers. TRAVEL OUTSIDE OF THE [place] IN LAST 30 DAYS: No - Related Data Allergies/Adverse Reactions: codeine [Codeine] Allergy (Verified 03/13/17 00:37) Past Medical History Pulmonary Medical History: Denies: Hx Asthma, Hx Bronchitis, Hx Pneumonia Endocrine Medical History: Reports: Hx Diabetes Mellitus Type 2 Renal/ Medical History: Reports: Hx Ectopic - treated with methotrexate. Denies: Hx Peritoneal Dialysis Musculoskeltal Medical History: Reports Hx Arthritis - Sciatica Psychiatric Medical History: Reports: Hx Anxiety, Hx Attention Deficit Hyperactivity Disorder, Hx Bipolar Disorder, Hx Depression Past Surgical History: Reports: Hx Appendectomy - September 2012 - Immunizations Hx Diphtheria, Pertussis, Tetanus Vaccination: Yes Physical Exam - Vital signs Vitals: Temp Pulse Resp BP Pulse Ox 97.7 F 112 H 20 123/94 H 97 12/06/17 23:41 12/06/17 23:41 12/06/17 23:41 12/06/17 23:41 12/06/17 23:41 Course - Vital Signs Vital signs: Temp Pulse Resp BP Pulse Ox 97.7 F 112 H 20 123/94 H 97 12/06/17 23:41 12/06/17 23:41 12/06/17 23:41 12/06/17 23:41 12/06/17 23:41
[2017-12-07] MEDS ORDERED: HYDROMORPHONE HCL INJ/PF 2 MG/ML AMPULE IM ONE (02:14)
[2017-12-07 02:26] LABS: AMORPHOUS SEDIMENT,URINE 1+ /HPF; APPEARANCE,URINE TURBID; BILIRUBIN,URINE SMALL (NEGATIVE); COLOR,URINE YELLOW; GLUCOSE, URINE NEGATIVE (NEGATIVE); KETONES,URINE TRACE mg/dL (NEGATIVE); LEUKOCYTE ESTERASE,URINE NEGATIVE (NEGATIVE); NITRITE,URINE NEGATIVE (NEGATIVE); PROTEIN,URINE 30 mg/dL (NEGATIVE)
[2017-12-07 03:07] LABS: BACTERIA (WET MOUNT) 3+ BACTERIA SEEN; EPITHELIALS (WET MOUNT) 3+ EPITHELIALS SEEN; RBCS (WET MOUNT) NO RBCS SEEN; T.VAGINALIS (WET MOUNT) NO TRICHOMONAS SEEN; WBCS (WET MOUNT) 1+ WBCS SEEN; YEAST (WET MOUNT) NO YEAST SEEN
[2017-12-07] MEDS ORDERED: METRONIDAZOLE 500 MG TABLET PO ONE (04:02)
--- NOTE | 2017-12-07 04:07 | ER Document Report ---
ED General - General Chief Complaint: Pelvic Pain Stated Complaint: PELVIC AND BACK PAIN Time Seen by Provider: 12/07/17 00:30 Mode of Arrival: Ambulatory Notes: Patient is a 37-year-old female presents with complaint of pelvic pain rating to her back. This was in the right side. Should the exact same symptoms 1-2 months ago and at that time had actual vaginosis and was treated and improved. Patient is sexually monogamous with her . She denies any concerns 6 transmitted diseases. She has noticed little bit of discharge recently. No fevers. No vomiting. She does have previous history of ectopic . She does not think she be at this time. She has had an appendectomy in the past. TRAVEL OUTSIDE OF THE [place] IN LAST 30 DAYS: No - Related Data Allergies/Adverse Reactions: codeine [Codeine] Allergy (Verified 03/13/17 00:37) Past Medical History - General Information source: Patient - Social History Smoking Status: Current Every Day Smoker Chew tobacco use (# tins/day): No Frequency of alcohol use: None Drug Abuse: None Family History: Reviewed & Not Pertinent Patient has suicidal ideation: No Patient has homicidal ideation: No Pulmonary Medical History: Denies: Hx Asthma, Hx Bronchitis, Hx Pneumonia Endocrine Medical History: Reports: Hx Diabetes Mellitus Type 2 Renal/ Medical History: Reports: Hx Ectopic - treated with methotrexate. Denies: Hx Peritoneal Dialysis Musculoskeltal Medical History: Reports Hx Arthritis - Sciatica Psychiatric Medical History: Reports: Hx Anxiety, Hx Attention Deficit Hyperactivity Disorder, Hx Bipolar Disorder, Hx Depression Past Surgical History: Reports: Hx Appendectomy - September 2012 - Immunizations Hx Diphtheria, Pertussis, Tetanus Vaccination: Yes Review of Systems - Review of Systems Notes: My Normal Review Basic REVIEW OF SYSTEMS: CONSTITUTIONAL : Denies fever, chills, or sweats. Denies recent illness. RESPIRATORY: Denies cough, cold, or chest congestion. Denies shortness of breath, difficulty breathing, or wheezing. GASTROINTESTINAL: Suprapubic and right lower pain. Denies nausea, vomiting, or diarrhea. GENITOURINARY: Denies difficulty urinating, painful urination, burning, frequency, or blood in urine. FEMALE GENITOURINARY: Abnormal vaginal discharge. Pelvic pain. MUSCULOSKELETAL: Denies neck or back pain or joint pain or swelling. SKIN: Denies rash or skin lesions. NEUROLOGICAL: Denies altered mental status or loss of consciousness. Denies headache. Denies weakness or paralysis or loss of use of either side. Denies problems with gait or speech. Denies sensory or motor loss. ALL OTHER SYSTEMS REVIEWED AND NEGATIVE. Physical Exam - Vital signs Vitals: Temp Pulse Resp BP Pulse Ox 97.7 F 112 H 20 123/94 H 97 12/06/17 23:41 12/06/17 23:41 12/06/17 23:41 12/06/17 23:41 12/06/17 23:41 - Notes Notes: General Appearance: Well nourished, alert, cooperative, no acute distress, moderate obvious discomfort. Vitals: reviewed, See vital signs table. Head: no swelling or tenderness to the head Eyes: PERRL, EOMI, Conjuctiva clear Mouth: No decreasd moisture Lungs: No wheezing, No rales, No rhonci, No accessory muscle use, good air exchange bilaterally. Heart: Normal rate, Regular rythm, No murmur, no rub Abdomen: Normal BS, soft, No rigidity, No abdominal tenderness, No guarding, no rebound, no abdominal masses, no organomegaly Exam: Normal external genitalia. No blood in vaginal vault. On pelvic exam there is a small consistent with that of bacterial vaginosis. Small amount of whitish discharge. Pelvic exam performed with female technology risk intern [place] at bedside. Extremities: strength 5/5 in all extremities, good pulses in all extremities, no swelling or tenderness in the extremities, no edema. Skin: warm, dry, appropriate color, no rash Neuro: speech clear, oriented x 3, normal affect, responds appropriately to questions. Course - Re-evaluation Re-evalutation: 12/07/17 04:08 Patient is feeling much improved after receiving pain medicine. She is very comfortable this time. Her wet prep suggests potential vaginosis. Pelvic exam shows smell suggestive of bacterial vaginosis as well. Her gonorrhea and chlamydia swabs are pending however I do not suspect these will be positive this patient is sexually monogamous with her last time she had the symptoms her gonorrhea and chlamydia swabs were negative at that time as well. Patient will be given prescription for antibiotics. She is encouraged to return to ER if she has worsening pain, fevers, or feels unwell. Patient agrees with plan will be discharged home. Dictation of this chart was performed using voice recognition software; therefore, there may be some unintended grammatical errors. - Vital Signs Vital signs: Temp Pulse Resp BP Pulse Ox 97.4 F 86 16 127/84 H 98 12/07/17 04:11 12/07/17 04:11 12/07/17 04:11 12/07/17 04:11 12/07/17 04:11 - Laboratory Laboratory results interpreted by me: 12/07/17 01:25 Urine Protein 30 H Urine Ketones TRACE H Urine Bilirubin SMALL H Urine Urobilinogen 4.0 H Discharge - Discharge Clinical Impression: Bacterial vaginosis Condition: Good Disposition: HOME, SELF-CARE Additional Instructions: I suspect that your pain is related to bacterial vaginosis. Pelvic exam and the swab that we did during the pelvic exam suggests that this most likely is bacterial vaginosis. We will place you on antibiotic. Please return to ER immediately if you have fevers, worsening pain, or if you feel unwell. Please follow-up with your casino shift manager in 1 week due to recurrence of this infection. Do not take NSAID medicaitons such as Aspirin, Motrin, Ibuprofen, Aleve, or Advil when taking the Toradol. It is okay to take Tylenol. Prescriptions: Ketorolac Tromethamine [Toradol 10 mg Tablet] 10 mg PO Q8HP PRN #12 tablet PRN Reason: For Breakthrough Pain Metronidazole [Flagyl 500 mg Tablet] 500 mg PO BID #14 tablet
[2017-12-07 04:13] VITALS: BP 127/84
[2017-12-07 04:28] LABS: CHLAM PCR NOT DETECTED (NOT DETECT); GON PCR NOT DETECTED (NOT DETECT)
== END 2017-12-07 04:13 | disposition home or self-care (01) ==
LOC: ER 22:08
DX: N76.0 Acute vaginitis (principal); B96.89 Other specified bacterial agents as the cause of diseases classified elsewhere; R10.2 Pelvic and perineal pain; F17.200 Nicotine dependence, unspecified, uncomplicated; E11.9 Type 2 diabetes mellitus without complications; Z88.6 Allergy status to analgesic agent
CPT/HCPCS: 99284; 96372; 87086; 87210; 81025; 81001; 87491; 87591; J1170

== ENCOUNTER 2018-08-06 21:39 | Emergency (ER) | payer SELFPAY ==
[2018-08-07] MEDS ORDERED: METHYLPREDNISOLONE INJ 125 MG/2 ML SDV IV ONE (01:49)
[2018-08-07] MEDS ORDERED: NORMAL SALINE 1000 ML 1,000 ML IV ONE (01:52)
[2018-08-07 01:55] LABS: A TYPE INFLUENZA AG NEGATIVE (NEGATIVE); B INFLUENZA AG NEGATIVE (NEGATIVE)
[2018-08-07] MEDS ORDERED: IBUPROFEN 600 MG TABLET PO ONE ×2 (02:06)
[2018-08-07 02:13] LABS: ABSOLUTE BASOPHILS # (AUTO) 0.1 10^3/uL (0.0-0.2); ABSOLUTE EOSINOPHILS # (AUTO) 0.3 10^3/uL (0.0-0.6); ABSOLUTE LYMPHOCYTES (AUTO) 1.1 10^3/uL (0.5-4.7); ABSOLUTE MONOCYTES (AUTO) 0.6 10^3/uL (0.1-1.4); ABSOLUTE NEUT (AUTO) 9.1 10^3/uL (1.7-8.2); BASOPHILS % (AUTO) 0.7 % (0-2); EOSINOPHILS % (AUTO) 2.7 % (0-6); HEMATOCRIT 40.3 % (36.0-47.0); HEMOGLOBIN 14.1 g/dL (12.0-15.5); LYMPHOCYTES % (AUTO) 9.6 % (13-45); MEAN CORPUSCULAR VOLUME 86 fl (80-97); MONOCYTES % (AUTO) 5.4 % (3-13); PLATELET COUNT 328 10^3/uL (150-450); RED CELL DISTRIBUTION WIDTH 13.7 % (11.5-14.0); SEGMENTED NEUTROPHILS % (AUTO) 81.6 % (42-78); TOTAL CELLS COUNTED % (AUTO) 100 %; WHITE BLOOD COUNT 11.1 10^3/uL (4.0-10.5)
[2018-08-07 02:30] LABS: ANION GAP 12 (5-19); BLOOD UREA NITROGEN 11 mg/dL (7-20); CALCIUM 9.9 mg/dL (8.4-10.2); CARBON DIOXIDE 23 mmol/L (22-30); CHLORIDE 103 mmol/L (98-107); GLUCOSE 115 mg/dL (75-110); SODIUM 138.4 mmol/L (137-145)
--- NOTE | 2018-08-07 02:49 | RADIOLOGY REPORT (SQ) ---
EXAM DESCRIPTION: XR CHEST 2 VIEWS COMPLETED DATE/TME: 08/07/2018 01:51 CLINICAL HISTORY: 38 years, Female, cough COMPARISON: X-ray chest 08/01/2016 NUMBER OF VIEWS: TECHNIQUE: LIMITATIONS: None. FINDINGS: No evidence of pulmonary infiltrate or pleural effusion. The heart and mediastinum are unremarkable. Pulmonary vascularity appears normal. IMPRESSION: No acute finding. copyright 2010 [employer]- All Rights Reserved
--- NOTE | 2018-08-07 03:54 | ER Document Report ---
ED General - General Chief Complaint: Fever Stated Complaint: UPPER RESPIRATORY SYMPTOMS,FEVER Time Seen by Provider: 08/07/18 01:40 Primary Care Provider: SUYAPA ALEXANDER MD [Primary Care Provider] - Follow up as needed TRAVEL OUTSIDE OF THE [place] IN LAST 30 DAYS: No - HPI Notes: Patient presents emergency department for evaluation of cough and intermittent fevers. Is been going on for the last 2 weeks. She denies any nausea or vomiting. She is eating and drinking well. She states she has been exposed to "insulation" on her job, is worried that this might be responsible for her symptoms. She states she was on antibiotics from her primary care physician without any significant relief. - Related Data Allergies/Adverse Reactions: codeine [Codeine] Allergy (Verified 03/13/17 00:37) Past Medical History - General Information source: Patient - Social History Smoking Status: Unknown if Ever Smoked Family History: Reviewed & Not Pertinent Patient has suicidal ideation: No Patient has homicidal ideation: No Pulmonary Medical History: Denies: Hx Asthma, Hx Bronchitis, Hx Pneumonia Endocrine Medical History: Reports: Hx Diabetes Mellitus Type 2 Renal/ Medical History: Reports: Hx Ectopic - treated with methotrexate. Denies: Hx Peritoneal Dialysis Musculoskeletal Medical History: Reports Hx Arthritis - Sciatica Psychiatric Medical History: Reports: Hx Anxiety, Hx Attention Deficit Hyperactivity Disorder, Hx Bipolar Disorder, Hx Depression Past Surgical History: Reports: Hx Appendectomy - September 2012 - Immunizations Hx Diphtheria, Pertussis, Tetanus Vaccination: Yes Review of Systems - Review of Systems Constitutional: See HPI EENT: No symptoms reported Cardiovascular: No symptoms reported Respiratory: See HPI Gastrointestinal: No symptoms reported Female Genitourinary: No symptoms reported Musculoskeletal: No symptoms reported Skin: No symptoms reported Neurological/Psychological: No symptoms reported Physical Exam - Vital signs Vitals: Temp Pulse Resp BP Pulse Ox 98.4 F 124 H 22 H 119/69 97 08/06/18 22:20 08/06/18 22:20 08/06/18 22:20 08/06/18 22:20 08/06/18 22:20 - Notes Notes: Vital signs reviewed, please refer to chart. Patient with hacking, dry cough occasionally. Patient is normocephalic, atraumatic. Pupils equal round, reactive to light. Neck is supple without meningismus. Heart is regular, mild tachycardia. Lungs are clear to auscultation bilaterally. Abdomen is soft, nontender, normoactive bowel sounds throughout. Extremities without cyanosis, clubbing, edema. Peripheral pulses are equal. Skin is warm and dry. Patient is awake, alert, neurological exam is nonfocal. Course - Re-evaluation Re-evalutation: 08/07/18 06:53 Patient presents to the emergency department for evaluation. Laboratory investigations are largely unremarkable. She was given IV fluids. Influenza was negative. She was feeling improved after steroids here. I suspect it may be she has a mild pneumonitis. She is allergic to codeine and cannot take dextromethorphan. We will send her home with Hycodan and prednisone. She is to follow-up with primary care, return to the ED with worsening or new concerning symptoms. - Vital Signs Vital signs: Temp Pulse Resp BP Pulse Ox 98.6 F 106 H 22 H 127/71 H 98 08/07/18 04:22 08/07/18 04:39 08/07/18 04:22 08/07/18 04:22 08/07/18 04:22 - Laboratory Result Diagrams: 08/07/18 02:00 08/07/18 02:00 Laboratory results interpreted by me: 08/07/18 08/07/18 02:00 02:00 WBC 11.1 H Seg Neutrophils % 81.6 H Lymphocytes % 9.6 L Absolute Neutrophils 9.1 H Glucose 115 H - Diagnostic Test Radiology reviewed: Reports reviewed - No acute cardiopulmonary disease Discharge - Discharge Clinical Impression: Cough Condition: Stable Disposition: HOME, SELF-CARE Additional Instructions: Take medications as prescribed. Follow-up with your primary care physician in 1-2 weeks. Return to the emergency department with worsening or new concerning terms. Prescriptions: Hydrocodone Bit/Homatropine [Hycodan Syrup 5-1.5 mg/5 ml Ud Cup] 5 ml PO Q4HP PRN #80 ml PRN Reason: Prednisone [Deltasone 20 mg Tablet] 3 tab PO DAILY 5 Days #15 tablet Forms: Return to Work Referrals: SUYAPA ALEXANDER MD [Primary Care Provider] - Follow up as needed
[2018-08-07 04:23] VITALS: BP 127/71
== END 2018-08-07 04:39 | disposition home or self-care (01) ==
LOC: ER 21:39
DX: R05 Cough (principal); R50.9 Fever, unspecified; E11.9 Type 2 diabetes mellitus without complications; Z88.6 Allergy status to analgesic agent
CPT/HCPCS: 99283; 96374; 36415; 85025; 80048; 87804; 71046; J2930; J7030; 96361

== ENCOUNTER 2018-12-23 10:23 | Emergency (ER) | payer SELFPAY ==
[2018-12-23 11:59] LABS: ALANINE AMINOTRANSFERASE 27 U/L (9-52); ALBUMIN 4.1 g/dL (3.5-5.0); ALKALINE PHOSPHATASE 97 U/L (38-126); ANION GAP 12 (5-19); ASPARTATE AMINO TRANSFERASE 25 U/L (14-36); BILIRUBIN,DIRECT 0.3 mg/dL (0.0-0.4); BILIRUBIN,TOTAL 0.5 mg/dL (0.2-1.3); BLOOD UREA NITROGEN 14 mg/dL (7-20); CALCIUM 9.5 mg/dL (8.4-10.2); CARBON DIOXIDE 21 mmol/L (22-30); CHLORIDE 104 mmol/L (98-107); GLUCOSE 186 mg/dL (75-110); POTASSIUM 4.3 mmol/L (3.6-5.0)
[2018-12-23 12:03] LABS: ABSOLUTE BASOPHILS # (AUTO) 0.1 10^3/uL (0.0-0.2); ABSOLUTE EOSINOPHILS # (AUTO) 0.4 10^3/uL (0.0-0.6); ABSOLUTE LYMPHOCYTES (AUTO) 2.5 10^3/uL (0.5-4.7); ABSOLUTE MONOCYTES (AUTO) 0.6 10^3/uL (0.1-1.4); ABSOLUTE NEUT (AUTO) 10.4 10^3/uL (1.7-8.2); BASOPHILS % (AUTO) 0.5 % (0-2); EOSINOPHILS % (AUTO) 3.2 % (0-6); HEMATOCRIT 38.3 % (36.0-47.0); HEMOGLOBIN 13.1 g/dL (12.0-15.5); LYMPHOCYTES % (AUTO) 17.8 % (13-45); MEAN CORPUSCULAR HEMOGLOBIN 29.4 pg (27.0-33.4); MEAN CORPUSCULAR HGB CONC 34.1 g/dL (32.0-36.0); MEAN CORPUSCULAR VOLUME 86 fl (80-97); MONOCYTES % (AUTO) 4.3 % (3-13); PLATELET COUNT 354 10^3/uL (150-450); RED BLOOD COUNT 4.44 10^6/uL (3.72-5.28); RED CELL DISTRIBUTION WIDTH 14.1 % (11.5-14.0); SEGMENTED NEUTROPHILS % (AUTO) 74.2 % (42-78); TOTAL CELLS COUNTED % (AUTO) 100 %
[2018-12-23 12:19] LABS: APPEARANCE,URINE CLEAR; BILIRUBIN,URINE NEGATIVE (NEGATIVE); COLOR,URINE YELLOW; GLUCOSE, URINE NEGATIVE (NEGATIVE); KETONES,URINE NEGATIVE (NEGATIVE); LEUKOCYTE ESTERASE,URINE NEGATIVE (NEGATIVE); NITRITE,URINE NEGATIVE (NEGATIVE); PROTEIN,URINE NEGATIVE (NEGATIVE); URINE SPECIFIC GRAVITY 1.009; UROBILINOGEN,URINE NEGATIVE mg/dL (<2.0)
[2018-12-23] MEDS ORDERED: MORPHINE SULFATE 10 MG/ML INJ IV ONE ×2 (12:47→16:28)
[2018-12-23] MEDS ORDERED: ONDANSETRON HCL INJ/PF 4 MG/2 ML SDV IV ONE (12:47)
--- NOTE | 2018-12-23 14:26 | ER Document Report ---
ED General - General Chief Complaint: Back Pain Stated Complaint: BACK PAIN Time Seen by Provider: 12/23/18 11:30 TRAVEL OUTSIDE OF THE [place] IN LAST 30 DAYS: No - HPI Notes: Patient is a 38-year-old female who presents to the emergency department for evaluation. 2 days ago she fell down a few steps. She landed on her buttocks, slid down a few stairs on her buttocks. She denies hitting her head or losing consciousness. She states really at that point she had only minimal pain. Since then she has had progressive pain in her lower back. It radiates down her entire right leg, and she has associated numbness on her anterior thighs. She states she is having difficulty moving her bowels. She states normally she moves her bowels every single morning, she has not moved her bowels since the fall. She also feels like she is urinating more frequently. She denies any saddle anesthesia no focal weakness that she is appreciated. She has had no incontinence. - Related Data Allergies/Adverse Reactions: codeine [Codeine] Allergy (Verified 12/23/18 10:24) Past Medical History - General Information source: Patient - Social History Smoking Status: Current Every Day Smoker Frequency of alcohol use: None Drug Abuse: Marijuana Family History: Reviewed & Not Pertinent Patient has suicidal ideation: No Patient has homicidal ideation: No Pulmonary Medical History: Denies: Hx Asthma, Hx Bronchitis, Hx Pneumonia Endocrine Medical History: Reports: Hx Diabetes Mellitus Type 2 Renal/ Medical History: Reports: Hx Ectopic - treated with methotrexate. Denies: Hx Peritoneal Dialysis Musculoskeletal Medical History: Reports Hx Arthritis - Sciatica Psychiatric Medical History: Reports: Hx Anxiety, Hx Attention Deficit Hyperactivity Disorder, Hx Bipolar Disorder, Hx Depression Past Surgical History: Reports: Hx Appendectomy - September 2012 - Immunizations Hx Diphtheria, Pertussis, Tetanus Vaccination: Yes Review of Systems - Review of Systems Constitutional: No symptoms reported EENT: No symptoms reported Cardiovascular: No symptoms reported Respiratory: No symptoms reported Gastrointestinal: See HPI Genitourinary: See HPI Female Genitourinary: No symptoms reported Musculoskeletal: No symptoms reported Skin: No symptoms reported Neurological/Psychological: See HPI Physical Exam - Vital signs Vitals: Temp Pulse Resp BP Pulse Ox 97.9 F 90 16 145/82 H 95 12/23/18 10:56 12/23/18 10:56 12/23/18 10:56 12/23/18 10:56 12/23/18 10:56 - Notes Notes: Vital signs reviewed, please refer to chart. Head is normocephalic, atraumatic. Pupils equal round, reactive to light. Neck is supple without meningismus. Heart is regular rate and rhythm. Lungs are clear to auscultation bilaterally. Abdomen is soft, nontender, normoactive bowel sounds throughout. Extremities without cyanosis, clubbing. Posterior calves are nontender. Peripheral pulses are equal. Skin is warm and dry. Patient is awake, alert, neurological exam is nonfocal. Examination of the spine yields no midline tenderness or step-off. She has paraspinal musculature tenderness throughout the lumbar spine, right greater than left. She has a positive straight leg raise on the right, negative on the left. Patella and Achilles reflexes are 1+ bilaterally. Sensation is intact. Strength is plus 5 out of 5 bilateral lower extremities. Rectal exam is performed. She has no saddle anesthesia. Normal rectal sensation and good tone. Course - Re-evaluation Re-evalutation: 12/23/18 14:25 Patient presents to the emergency department for evaluation. Because of her difficulty moving her bowels, there is some concern about the possibility of cauda equina syndrome. MRI was ordered. Laboratory investigations showed a very mild leukocytosis, elevated glucose, but no other real acute concerns. Patient was medicated with some improvement. MRI is still pending at this time. I do not have a strong suspicion for cauda equina in this patient who has radicular symptoms, but no significant changes in rectal tone or saddle paresthesias. I do, however, suspect she does have some aspect of lumbar radiculopathy, particularly given her diminished reflexes and her positive straight leg raise test on the right. I will write her a prescription for anti-inflammatories, muscle relaxers, mild pain medication. I will avoid steroids in this patient who is a diabetic. MRI still pending at this time. If any significant abnormality that requires urgent intervention is identified, this will be dealt with by another emergency physician. Otherwise if unremar kable, patient will be discharged with close follow-up. Patient was notified of plan and is agreeable. She is to return to the ED with worsening. 12/23/18 14:36 - Vital Signs Vital signs: Temp Pulse Resp BP Pulse Ox 98.0 F 92 20 114/81 96 12/23/18 13:16 12/23/18 13:16 12/23/18 13:16 12/23/18 13:16 12/23/18 13:16 - Laboratory Result Diagrams: 12/23/18 11:25 12/23/18 11:25 Laboratory results interpreted by me: 12/23/18 12/23/18 11:25 11:25 WBC 14.0 H RDW 14.1 H Absolute Neutrophils 10.4 H Sodium 136.6 L Carbon Dioxide 21 L Creatinine 0.40 L Glucose 186 H Discharge - Discharge Clinical Impression: Lumbar contusion Qualifiers: Encounter type: initial encounter Qualified Code(s): S30.0XXA - Contusion of lower back and pelvis, initial encounter Low back pain Qualifiers: Chronicity: acute Back pain laterality: bilateral Sciatica presence: with sciatica Sciatica laterality: sciatica of right side Qualified Code(s): M54.41 - Lumbago with sciatica, right side Constipation Qualifiers: Constipation type: unspecified constipation type Qualified Code(s): K59.00 - Constipation, unspecified Instructions: Low Back Pain ([facility]), Muscle Strain ([facility]), Oral Narcotic Medication ([facility]) Additional Instructions: Follow-up with your primary care provider this week. Moist heat to the lower back. Take medications as directed. Watch for constipation worsening with your pain medication. If you develop worsening or new concerning symptoms of any sort, return immediately to the emergency department for reevaluation. Prescriptions: Hydrocodone/Acetaminophen [[place] 5-325 mg Tablet] 1 tab PO Q6H PRN #8 tablet PRN Reason: Pain Scale Of 5 Methocarbamol [Robaxin-750] 750 mg PO TID PRN #21 tablet PRN Reason: Naproxen [Naprosyn 375 Mg Tablet] 375 mg PO BID #20 tablet
--- NOTE | 2018-12-23 15:37 | RADIOLOGY REPORT (SQ) ---
EXAM DESCRIPTION: MRI LUMBAR SPINE WITHOUT COMPLETED DATE/TIME: 12/23/2018 3:23 pm REASON FOR STUDY: back pain, injury, inability to move bowels COMPARISON: None. TECHNIQUE: Sagittal and Axial imaging includes T1, T2, STIR and gradient echo sequences. Coronal T2/ HASTE imaging. LIMITATIONS: None. FINDINGS: VISUALIZED UPPER ABDOMEN: Limited evaluation. No acute or suspicious findings suggested. SEGMENTATION: No transitional anatomy. The lowest well-developed disc space is labeled L5-S1. ALIGNMENT: Anatomic. VERTEBRAE: Intact. BONE MARROW: Normal. No marrow replacement or reactive changes. DISC SIGNAL: Generally preserved. POSTERIOR ELEMENTS: Generally intact. No pars defect evident. HARDWARE: None in the spine. CORD AND CONUS: Normal in size and signal intensity. Conus at the appropriate level. SOFT TISSUES: No aortic aneurysm seen. No bulky retroperitoneal adenopathy or mass. No paraspinal mas s or fluid. L1-L2: No significant spinal stenosis or exit foraminal stenosis. L2-L3: No significant spinal stenosis or exit foraminal stenosis. L3-L4: No significant spinal stenosis or exit foraminal stenosis. L4-L5: Minimal facet arthropathy without significant overgrowth or stenosis. L5-S1: Mild central to left paracentral protrusion. No suggestion of significant mass effect on the S1 nerve roots. Suspect mild -moderate bilateral foraminal narrowing. LOWER THORACIC: Incompletely imaged. No stenosis seen. SACRUM: Visualized upper sacrum intact. OTHER: No other significant findings. IMPRESSION: 1. Lumbar spondylosis. Most notable at L5-S1. This results in noncritical foraminal stenosis. 2. No evidence of fracture or spinal malalignment. TECHNICAL DOCUMENTATION: JOB ID: [id number] [employer]- All Rights Reserved Reading location - IP/workstation name: [email or web address]
--- NOTE | 2018-12-23 16:32 | ER Document Report ---
Doctor's Note Notes: 12/23/18 16:29 Patient signed out to me by the off going physician. Pending MRI of the lumbar spine. Instructions were that of the lumbar spine MRI did not show any obvious critical stenosis of the canal that the patient could be discharged home. Patient has been afebrile, white count is recorded. MRI as recorded. Patient has no incontinence of feces or urine. Patient is smiling and laughing in no acute distress. No swelling or erythema of the back. Patient denies current weakness of the legs. Patient will be discharged home with strict return precautions and follow-up with the primary doctor.
[2018-12-23 17:03] VITALS: BP 118/72
== END 2018-12-23 17:02 | disposition home or self-care (01) ==
LOC: ER 10:23
DX: S30.0XXA Contusion of lower back and pelvis, initial encounter (principal); M54.41 Lumbago with sciatica, right side; K59.00 Constipation, unspecified; M54.9 Dorsalgia, unspecified; W10.9XXA Fall (on) (from) unspecified stairs and steps, initial encounter; F17.200 Nicotine dependence, unspecified, uncomplicated; E11.9 Type 2 diabetes mellitus without complications
CPT/HCPCS: 96376; 99284; 96374; 96375; 36415; 85025; 80053; 81001; 72148; J2270; J2405